=== PATIENT | male | born 1965 | race African-American/Black ===

== ENCOUNTER 2016-08-29 09:04 | Inpatient (IN) | payer MEDICAID ==
[~2016-08-29] VITALS: Ht 182.9 cm; Wt 72.6 kg
[2016-08-29] VITALS (7 sets, daily range): BP systolic 113–148; BP diastolic 70–91
[~2016-08-29 09:04] MED LIST: NKM
[2016-08-29 09:56] LABS: MEAN CORPUSCULAR HEMOGLOBIN 19.8 PG (27.0-31.0); MEAN CORPUSCULAR HGB CONC 26.3 G/DL (32.0-36.0); MEAN CORPUSCULAR VOLUME 75 FL (80-99); MEAN PLATELET VOLUME 5.2 FL (6.5-10.1); PLATELET COUNT 82 K/UL (150-450); RED BLOOD COUNT 2.39 M/UL (4.70-6.10); RED CELL DISTRIBUTION WIDTH 23.3 % (11.6-14.8); WHITE BLOOD COUNT 8.5 K/UL (4.8-10.8)
[2016-08-29 10:05] LABS: ACETAMINOPHEN < 10 ug/mL (10-30); ALANINE AMINOTRANSFERASE 22 U/L (3-41); ALBUMIN/GLOBULIN RATIO 0.8 (1.0-2.7); ALCOHOL 24 mg/dL; ANION GAP 20 (5-15); ASPARTATE AMINO TRANSFERASE 86 U/L (5-40); CALCIUM 9.1 mg/dL (8.6-10.2); CARBON DIOXIDE 20 mEQ/L (20-30); CHLORIDE 96 mEQ/L (98-107); CREATININE 0.6 mg/dL (0.7-1.2); GLOMERULAR FILTRATION RATE > 60 mL/min (>60); HEMOLYSIS 0; POTASSIUM 3.6 mEQ/L (3.4-4.9); SODIUM 136 mEQ/L (135-145); TOTAL PROTEIN 7.3 g/dL (6.6-8.7); TROPONIN I < 0.30 ng/mL (<=0.30)
--- NOTE | 2016-08-29 10:08 | Diagnostic Imaging Report ---
Indications: Syncope, vertigo, sluggishness Technique: Continuous helical CT imaging of the brain was performed with automatic exposure control on a Siemens sensation [address] scanner. Axial and coronal images were reconstructed at 5 mm slice thickness and interval. CTDI volume(s): 70 mGy Total DLP: 1488 mGy-cm Findings: Comparison: None. Ventricles, cisterns, sulci are mildly, diffusely prominent. No evidence of mass or hemorrhage, other attenuation abnormality, mass effect, midline shift, hydrocephalus or increased intracranial pressure. Bone window images are unremarkable. Visualized paranasal sinuses and mastoid air cells are clear. IMPRESSION: No evidence of acute intracranial pathology. Mild atrophy, prominent for age. The CT scanner at [facility] is accredited by the [employer] and the scans are performed using protocols designed to limit radiation exposure to as low as reasonably achievable to attain images of sufficient resolution adequate for diagnostic evaluation.
[2016-08-29 10:15] LABS: CKMB 2.4 ng/mL (< 6.7); INR 1.3 (0.9-1.1)
[2016-08-29 10:26] LABS: BILIRUBIN,DIRECT 1.1 mg/dL (0.1-0.3)
[2016-08-29 10:39] LABS: ANISOCYTOSIS 2+; BAND NEUTROPHILS % (MANUAL) 1 % (0-8); BASOPHILS % (MANUAL) 0 % (0-2); EOSINOPHILS % (MANUAL) 1 % (0-3); LYMPHOCYTES % (MANUAL) 14 % (20-45); MICROCYTES 1+; NEUTROPHILS % (MANUAL) 77 % (45-75); PLATELET ESTIMATE DECREASED; PLATELET MORPHOLOGY NORMAL; TOTAL CELLS COUNTED 100
[2016-08-29 10:40] LABS: HYPOCHROMASIA 3+
[2016-08-29] MEDS ORDERED: GABAPENTIN300 MG ORAL (11:48)
[2016-08-29] MEDS ORDERED: NAPROXEN250 M1 PO (11:48)
--- NOTE | 2016-08-29 13:57 | Emergency Room Report ---
History of Present Illness General Chief Complaint: Dizziness Source: Patient Present Illness HPI 50-year-old male presents to ED for evaluation. Patient states he was at a fast food restaurant with his and he started to feel dizzy and weak. 911 was called. Patient states he feels a little better now. Feels very weak. at bedside states that patient didn't fall and hit his head a few days ago. Denies any chest pain shortness of breath. Notes history of alcohol use. States he drinks every day. states that for several months patient had blood in his stool. No other aggravating or relieving factors. Denies any other associated symptoms Allergies: Coded Allergies: No Known Allergies (Unverified , 12/28/15) Patient History Past Medical History: none Past Surgical History: none Pertinent Family History: none Social History: Reports: alcohol use, Denies: drug use, smoking Immunizations: UTD Reviewed Nursing Documentation: PMH: Agreed, PSxH: Agreed Nursing Documentation-PMH Past Medical History: No Stated History Review of Systems All Other Systems: negative except mentioned in HPI Physical Exam Vital Signs Date Time Temp Pulse Resp B/P Pulse Ox O2 Delivery O2 Flow Rate FiO2 08/29/16 08:56 98.1 75 18 115/72 99 Room Air Sp02 EP Interpretation: reviewed, normal General Appearance: no apparent distress, alert, GCS 15, non-toxic Head: normocephalic, atraumatic Eyes: bilateral eye PERRL, bilateral eye normal inspection ENT: hearing grossly normal, normal pharynx, no angioedema, normal voice Neck: full range of motion, supple/symm/no masses Respiratory: chest non-tender, lungs clear, normal breath sounds, speaking full sentences Cardiovascular #1: regular rate, rhythm, no edema Cardiovascular #2: 2+ carotid (R), 2+ carotid (L), 2+ radial (R), 2+ radial (L) , 2+ dorsalis pedis (R), 2+ dorsalis pedis (L) Gastrointestinal: normal bowel sounds, non tender, soft, non-distended, no guarding, no rebound Rectal: heme negative stool Genitourinary: normal inspection, no CVA tenderness Musculoskeletal: back normal, gait/station normal, normal range of motion, non- tender Neurologic: alert, oriented x3, responsive, motor strength/tone normal, sensory intact, speech normal Psychiatric: judgement/insight normal, memory normal, mood/affect normal, no suicidal/homicidal ideation Reflexes: 3+ bicep (R), 3+ bicep (L), 3+ tricep (R), 3+ tricep (L), 3+ knee (R) , 3+ knee (L) Skin: normal color, no rash, warm/dry, well hydrated Lymphatic: no adenopathy Procedures Critical Care Time Critical Care Time i. I feel this is a highly complex case requiring extensive working including EKG/Rhythm strip, Xray/CT/US, Blood/urine lab work, repeat exams while in ED, and administration of strong opiates/narcotics for pain control, admission to hospital or close patient follow up. Total time: 30 min bedside evaluation and treatment excludes procedures (EKG). Reason for critical care: dizziness, severe anemia Possible complications: hypotension, hypertension, OH, shock, arrhythmias, metabolic acidosis, end organ damage, respiratory failure. Interventions: Labs, IV fluids, EKG, chest x-ray, CT head. Blood transfusion Course: Patient brought in for dizziness, headache injury. History of alcohol abuse. CT head negative, EKG unremarkable. Hemoglobin 4.7. LFTs elevated.. Guaiac-negative. Vital stable. PRBCs ordered Consultations: nursing staff, EMS, family Performed by: Dr Law Tolerated well condition = critical j. because of unstable vital signs this patient had a condition that could potentially threaten life or limb. I feel this is a critical patient who required my full attention while patient was considered critical. Total Critical Care Time excluding procedures was greater than 35 minutes Medical Decision Making Diagnostic Impression: Primary Impression: Anemia Qualified Codes: D64.9 - Anemia, unspecified Additional Impressions: Head injury Qualified Codes: S09.90XA - Unspecified injury of head, initial encounter Dizziness Elevated LFTs ER Course Hospital Course 50-year-old m presents ED c/o dizziness and weakness. Status post injury a few days ago. History of alcohol abuse Differential diagnoses include: OH/unstable angina, arrythmia, dehydration, CVA/ TIA, ETOH abuse Clinical course Patient placed on stretcher. on cardiac cath tech. After initial history and physical I ordered labs, EKG, chest x-ray, IVFs, CT Brain labs reviewed- no leukocytosis, hemoglobin 4.7, electrolytes okay, troponins negative, LFTs elevated, ETOH 24 EKG NSR, no acute changes CT brain-unremarkable Guaiac-negative. Prbc's ordered. Vital stable Case discussed with Dr. Rutherford and he agreed to accept the patient to his service for further care and support I. I feel this is a highly complex case requiring extensive working including EKG/Rhythm strip, Xray/CT/US, Blood/urine lab work, repeat exams while in ED, and administration of strong opiates/narcotics for pain control, admission to hospital or close patient follow up. Diagnosis - anemia, head injury, dizziness, elevated lfts admitted to [facility] in critical condition Labs Test 08/29/16 09:40 08/29/16 10:20 White Blood Count 8.5 K/UL (4.8-10.8) Red Blood Count 2.39 M/UL (4.70-6.10) Hemoglobin 4.7 G/DL (14.2-18.0) Hematocrit 18.0 % (42.0-52.0) Mean Corpuscular Volume 75 FL (80-99) Mean Corpuscular Hemoglobin 19.8 PG (27.0-31.0) Mean Corpuscular Hemoglobin Concent 26.3 G/DL (32.0-36.0) Red Cell Distribution Width 23.3 % (11.6-14.8) Platelet Count 82 K/UL (150-450) Mean Platelet Volume 5.2 FL (6.5-10.1) Neutrophils (%) (Auto) % (45.0-75.0) Lymphocytes (%) (Auto) % (20.0-45.0) Monocytes (%) (Auto) % (1.0-10.0) Eosinophils (%) (Auto) % (0.0-3.0) Basophils (%) (Auto) % (0.0-2.0) Differential Total Cells Counted 100 Neutrophils % (Manual) 77 % (45-75) Lymphocytes % (Manual) 14 % (20-45) Monocytes % (Manual) 7 % (1-10) Eosinophils % (Manual) 1 % (0-3) Basophils % (Manual) 0 % (0-2) Band Neutrophils 1 % (0-8) Platelet Estimate Decreased Platelet Morphology Normal Hypochromasia 3+ Anisocytosis 2+ Microcytosis 1+ Prothrombin Time 13.0 SEC (9.30-11.50) Prothromb Time International Ratio 1.3 (0.9-1.1) Activated Partial Thromboplast Time 25 SEC (23-33) Sodium Level 136 mEQ/L (135-145) Potassium Level 3.6 mEQ/L (3.4-4.9) Chloride Level 96 mEQ/L (98-107) Carbon Dioxide Level 20 mEQ/L (20-30) Anion Gap 20 (5-15) Blood Urea Nitrogen 7 mg/dL (7-23) Creatinine 0.6 mg/dL (0.7-1.2) Estimat Glomerular Filtration Rate > 60 mL/min (>60) Glucose Level 89 mg/dL (74-106) Calcium Level 9.1 mg/dL (8.6-10.2) Total Bilirubin 2.4 mg/dL (0.0-1.2) Direct Bilirubin 1.1 mg/dL (0.1-0.3) Aspartate Amino Transf (AST/SGOT) 86 U/L (5-40) Alanine Aminotransferase (ALT/SGPT) 22 U/L (3-41) Alkaline Phosphatase 238 U/L (40-129) Total Creatine Kinase 239 U/L (38-174) Creatine Kinase MB 2.4 ng/mL (< 6.7) Creatine Kinase MB Relative Index 1.0 Troponin I < 0.30 ng/mL (<=0.30) Total Protein 7.3 g/dL (6.6-8.7) Albumin 3.4 g/dL (3.5-5.2) Globulin 3.9 g/dL Albumin/Globulin Ratio 0.8 (1.0-2.7) Salicylates Level < 1 mg/dL (10-30) Acetaminophen Level < 10 ug/mL (10-30) Serum Alcohol 24 mg/dL Urine Opiates Screen Negative (NEGATIVE) Urine Barbiturates Screen Negative (NEGATIVE) Phencyclidine (PCP) Screen Negative (NEGATIVE) Urine Amphetamines Screen Negative (NEGATIVE) Urine Benzodiazepines Screen Negative (NEGATIVE) Urine Cocaine Screen Negative (NEGATIVE) Urine Marijuana (THC) Screen Negative (NEGATIVE) EKG Diagnostic Results Rate: normal Rhythm: NSR ST Segments: no acute changes ASA given to the pt in ED: No Rhythm Strip Diag. Results EP Interpretation: yes Rhythm: NSR, no PVC's, no ectopy CT/MRI/US Diagnostic Results CT/MRI/US Diagnostic Results : Imaging Test Ordered: CT head Impression no acute process Last Vital Signs Date Time Temp Pulse Resp B/P Pulse Ox O2 Delivery O2 Flow Rate FiO2 08/29/16 12:22 117 29 122/75 96 Room Air 08/29/16 11:35 98.0 Status: improved Disposition: ADMITTED INPATIENT Condition: Critical Referrals: NOT CHOSEN IPA/,REFERRING (PCP) SAMINA LAW M.D. August 29, 2016 13:57
[2016-08-29] MEDS ORDERED: Zolpidem 5mg tab ORAL PRN ×2 (14:15→14:25)
[2016-08-29] MEDS ORDERED: Tubing Blood Filter IV ONE (18:57)
[2016-08-29] MEDS ORDERED: NS 275ml ONE (18:57)
[2016-08-29] MEDS: Gabapentin 300 MG/6 ML Soln ORAL SCH (19:13)
[2016-08-30 04:00] VITALS: BP 129/84
[2016-08-30 05:37] LABS: MEAN CORPUSCULAR HEMOGLOBIN 23.4 PG (27.0-31.0); MEAN CORPUSCULAR HGB CONC 30.6 G/DL (32.0-36.0); MEAN CORPUSCULAR VOLUME 76 FL (80-99); MEAN PLATELET VOLUME 8.1 FL (6.5-10.1); PLATELET COUNT 90 K/UL (150-450); RED BLOOD COUNT 3.18 M/UL (4.70-6.10); RED CELL DISTRIBUTION WIDTH 20.1 % (11.6-14.8); WHITE BLOOD COUNT 12.1 K/UL (4.8-10.8)
[2016-08-30 06:44] LABS: ALANINE AMINOTRANSFERASE 23 U/L (3-41); ALBUMIN/GLOBULIN RATIO 0.8 (1.0-2.7); ANION GAP 18 (5-15); ASPARTATE AMINO TRANSFERASE 82 U/L (5-40); CALCIUM 8.9 mg/dL (8.6-10.2); CARBON DIOXIDE 22 mEQ/L (20-30); CHLORIDE 97 mEQ/L (98-107); CREATININE 0.5 mg/dL (0.7-1.2); GLOMERULAR FILTRATION RATE > 60 mL/min (>60); HEMOLYSIS 1; POTASSIUM 3.5 mEQ/L (3.4-4.9); SODIUM 137 mEQ/L (135-145); TOTAL PROTEIN 6.9 g/dL (6.6-8.7)
[2016-08-30 07:58] LABS: BILIRUBIN,DIRECT 1.3 mg/dL (0.1-0.3)
[2016-08-30 08:00] VITALS: BP 143/90
[2016-08-30 08:01] LABS: ANISOCYTOSIS 2+; BAND NEUTROPHILS % (MANUAL) 1 % (0-8); BASOPHILS % (MANUAL) 0 % (0-2); EOSINOPHILS % (MANUAL) 0 % (0-3); HYPOCHROMASIA 1+; LYMPHOCYTES % (MANUAL) 15 % (20-45); MICROCYTES 1+; NEUTROPHILS % (MANUAL) 78 % (45-75); NUCLEATED RED BLOOD CELLS 1 /100 WBC; PLATELET ESTIMATE DECREASED; PLATELET MORPHOLOGY NORMAL; TOTAL CELLS COUNTED 100
[2016-08-30 08:02] LABS: POLYCHROMASIA OCCASIONAL
[2016-08-30] MEDS: Gabapentin 300 MG/6 ML Soln ORAL SCH ×3 (10:40→18:28)
[2016-08-30] MEDS: Pantoprazole Inj IVP SCH ×2 (10:41→21:28)
[2016-08-30] MEDS: Octreotide Acetate 500 MCG in Sodium Chloride 499 ML IV SCH ×2 (10:58→20:49)
--- NOTE | 2016-08-30 11:20 | Diagnostic Imaging Report ---
Indications: Abdominal pain Technique: Transabdominal real-time grayscale and duplex Doppler imaging of the upper abdomen and retroperitoneum was performed. Findings: Comparison: None. Liver 18.4 cm. Normal surface contour, parenchymal echogenicity. 3.2 cm circumscribed anechoic focus in right lobe.. Gallbladder not identified. Bile ducts normal caliber. Common bile duct 5 mm. Pancreas poorly demonstrated without obvious abnormality; tail completely obscured. Spleen 12 cm, no focal lesions. Right kidney unremarkable. Left kidney contains 2 cm circumscribed anechoic focus in the interpolar cortex, otherwise unremarkable. Abdominal aorta, intrahepatic portion of inferior vena cava patent, normal caliber. Duplex Doppler imaging demonstrates antegrade flow in splenic, portal, hepatic veins. Minimal ascites. IMPRESSION: Mild hepatomegaly with right lobe cyst Nonvisualization of gallbladder--correlate with surgical history Suboptimal visualization of pancreas Left renal cortical cyst.
[2016-08-30 12:00] VITALS: BP 133/77
[2016-08-30] MEDS ORDERED: Bisacodyl EC 5mg tab ORAL ONE (12:00)
[2016-08-30] MEDS ORDERED: Nulytely 4L ORAL ONE (14:00)
[2016-08-30 16:00] VITALS: BP 122/79
[2016-08-30] MEDS ORDERED: Tubing IV Blood Pump IV ONE (17:28)
[2016-08-30] MEDS ORDERED: NS 275ml ONE (17:28)
--- NOTE | 2016-08-30 17:31 | History and Physical Report ---
DATE OF ADMISSION: 08/29/2016 REASON FOR ADMISSION: Profound anemia. HISTORY OF PRESENT ILLNESS: This is a 50-year-old male with noted melena. The patient apparently had been feeling weak and dizzy. He was brought into the emergency room by 911. The patient notes that he does drink alcohol every day. The patient's apparently has stated that he has had blood in the stool in the past. The patient currently is comfortable. The patient has received three units of packed red blood cells thus far and remains somewhat anemic. PAST MEDICAL HISTORY: As above. MEDICATIONS: Noted. ALLERGIES: Noted. SOCIAL HISTORY: The patient is a heavy drinker. REVIEW OF SYSTEMS: Otherwise negative. PHYSICAL EXAMINATION: GENERAL: A well-developed male, well built. VITAL SIGNS: Stable. Blood pressure 129/80, pulse 41, respiratory rate 16, and saturations 100% HEENT: Negative. NECK: Supple. No adenopathy. LUNGS: Clear and symmetric. CARDIOVASCULAR: S1 and S2. Regular rate and rhythm. ABDOMEN: Soft and nontender. EXTREMITIES: No edema. NEUROLOGICAL: Grossly nonfocal. LABORATORY DATA: All reviewed in detail. The patient's liver enzymes are not elevated. CBC currently improved with hemoglobin of 7.4, previously was 4.7. Coagulation factor is slightly elevated. IMPRESSION: Concern for underlying liver disease and elevated liver enzymes and possible alcoholic hepatitis and anemia with concern for gastrointestinal bleed. RECOMMENDATIONS: Transfusion of additional two units of packed red blood cells to equal five units of blood total. Protonix daily. Clear liquid diet. Hold any nonsteroidals Monitor for alcohol withdrawal. Await GI evaluation and discharge when stable. Wilfrid Rutherford M.D. DR: YESSENIA JOB#: [id number] CC:
[2016-08-30 20:00] VITALS: BP 134/85
--- NOTE | 2016-08-30 20:46 | Consultation ---
DATE OF CONSULTATION: [facility] CHIEF COMPLAINT: Gastrointestinal bleeding. HISTORY OF PRESENT ILLNESS: This is a 50-year-old male, who was in restaurant with his and his kids, started getting dizzy. A 911 was called. The patient was brought to the hospital where he was found to have a hemoglobin of 4. According to the , he uses alcohol on a daily basis. According to the , the patient has some blood in his stool. PAST MEDICAL HISTORY: None. ALLERGIES: No known drug allergies. MEDICATIONS: Please see medication reconciliation list. SOCIAL HISTORY: The patient drinks alcohol on daily basis. Denies IV drug abuse. FAMILY HISTORY: Noncontributory. REVIEW OF SYSTEMS: A 10-point review of system was performed and pertinent positives as dictated in history of present illness. PHYSICAL EXAMINATION: GENERAL: This is a well-developed male, in no acute distress. VITAL SIGNS: Temperature 98.1 degrees, pulse 85, respirations 16, and blood pressure is 129/84. HEENT: Normocephalic. conjunctivae. NECK: Supple. No evidence of lymphadenopathy. CARDIOVASCULAR: Regular rhythm. Plus S1 and S2. LUNGS: Decreased breath sounds bilaterally based on supine examination. ABDOMEN: Soft and nontender. No rebound. No guarding. No peritoneal sign. EXTREMITIES: No cyanosis. No clubbing. No edema. LABORATORY DATA: On admission, white count was 8.5, hemoglobin 4.7, hematocrit 18, MCV of 75, platelet count of 82,000. INR was 1.3. Sodium 137, potassium 3.5, BUN 5, and creatinine 0.5. Bilirubin is 3.8, direct bilirubin is 1.3, and alkaline phosphatase . ASSESSMENT: This is a 50-year-old male with gastrointestinal bleed. The patient most probably has had alcoholic cirrhosis. Given platelet count of 80s, so differential diagnosis would be variceal bleeding, portal hypertensive bleeding, and lower gastrointestinal bleeding, and the patient also has some bright red blood per rectum. PLAN: The patient to be on clear liquid diet for today, prep for colonoscopy and endoscopy tomorrow. NPO after midnight. Start the patient on octreotide drip. Start the patient on Protonix intravenous. Transfuse to keep hemoglobin above 8. Abdominal ultrasound, hepatitis panel, ammonia level, and esophagogastroduodenoscopy and colonoscopy tomorrow. I want to thank Dr. Rutherford for this kind referral. Ignacio Diaz M.D. DR: FRANCHESCA JOB#: [id number] CC: Wilfrid Rutherford M.D.; Fax#: [phone]
--- NOTE | 2016-08-30 21:15 | Consultation ---
DATE OF CONSULTATION: 08/30/2016 GASTROENTEROLOGY CONSULTATION CHIEF COMPLAINT: Gastrointestinal bleeding. HISTORY OF PRESENT ILLNESS: This is a 50-year-old male, who was in restaurant with his and his kids, started getting dizzy. A 911 was called. The patient was brought to the hospital where he was found to have a hemoglobin of 4. According to the , he uses alcohol on a daily basis. According to the , the patient has some blood in his stool. PAST MEDICAL HISTORY: None. ALLERGIES: No known drug allergies. MEDICATIONS: Please see medication reconciliation list. SOCIAL HISTORY: The patient drinks alcohol on daily basis. Denies IV drug abuse. FAMILY HISTORY: Noncontributory. REVIEW OF SYSTEMS: A 10-point review of system was performed and pertinent positives as dictated in history of present illness. PHYSICAL EXAMINATION: GENERAL: This is a well-developed male, in no acute distress. VITAL SIGNS: Temperature 98.1 degrees, pulse 85, respirations 16, and blood pressure is 129/84. HEENT: Normocephalic. conjunctivae. NECK: Supple. No evidence of lymphadenopathy. CARDIOVASCULAR: Regular rhythm. Plus S1 and S2. LUNGS: Decreased breath sounds bilaterally based on supine examination. ABDOMEN: Soft and nontender. No rebound. No guarding. No peritoneal sign. EXTREMITIES: No cyanosis. No clubbing. No edema. LABORATORY DATA: On admission, white count was 8.5, hemoglobin 4.7, hematocrit 18, MCV of 75, platelet count of 82,000. INR was 1.3. Sodium 137, potassium 3.5, BUN 5, and creatinine 0.5. Bilirubin is 3.8, direct bilirubin is 1.3, and alkaline phosphatase . ASSESSMENT: This is a 50-year-old male with gastrointestinal bleed. The patient most probably has had alcoholic cirrhosis. Given platelet count of 80s, so differential diagnosis would be variceal bleeding, portal hypertensive bleeding, and lower gastrointestinal bleeding, and the patient also has some bright red blood per rectum. PLAN: The patient to be on clear liquid diet for today, prep for colonoscopy and endoscopy tomorrow. NPO after midnight. Start the patient on octreotide drip. Start the patient on Protonix intravenous. Transfuse to keep hemoglobin above 8. Abdominal ultrasound, hepatitis panel, ammonia level, and esophagogastroduodenoscopy and colonoscopy tomorrow. I want to thank Dr. Rutherford for this kind referral. Ignacio Diaz M.D. DR: Naman JOB#: [id number] CC:
[2016-08-31] VITALS (9 sets, daily range): BP systolic 92–150; BP diastolic 62–94
[2016-08-31] MEDS: Octreotide Acetate 500 MCG in Sodium Chloride 499 ML IV SCH ×2 (05:26→18:27)
[2016-08-31 05:43] LABS: MEAN CORPUSCULAR HEMOGLOBIN 24.5 PG (27.0-31.0); MEAN CORPUSCULAR HGB CONC 31.9 G/DL (32.0-36.0); MEAN CORPUSCULAR VOLUME 77 FL (80-99); MEAN PLATELET VOLUME 8.1 FL (6.5-10.1); PLATELET COUNT 99 K/UL (150-450); RED BLOOD COUNT 3.65 M/UL (4.70-6.10); RED CELL DISTRIBUTION WIDTH 19.8 % (11.6-14.8); WHITE BLOOD COUNT 11.4 K/UL (4.8-10.8)
[2016-08-31 05:47] LABS: INR 1.5 (0.9-1.1)
[2016-08-31 06:09] LABS: ALANINE AMINOTRANSFERASE 20 U/L (3-41); ALBUMIN/GLOBULIN RATIO 0.8 (1.0-2.7); ANION GAP 16 (5-15); ASPARTATE AMINO TRANSFERASE 60 U/L (5-40); CALCIUM 8.5 mg/dL (8.6-10.2); CARBON DIOXIDE 22 mEQ/L (20-30); CHLORIDE 95 mEQ/L (98-107); CREATININE 0.5 mg/dL (0.7-1.2); GLOMERULAR FILTRATION RATE > 60 mL/min (>60); HEMOLYSIS 1; POTASSIUM 3.4 mEQ/L (3.4-4.9); SODIUM 133 mEQ/L (135-145); TOTAL PROTEIN 6.9 g/dL (6.6-8.7)
--- NOTE | 2016-08-31 08:04 | Pre-Procedure Note/Attestation ---
Pre-Procedure Note/Attestation Complete Prior to Procedure Planned Procedure: not applicable Procedure Narrative: egd/colonoscopy Indications for Procedure Pre-Operative Diagnosis: gib Attestation I attest that I discussed the nature of the procedure; its benefits; risks and complications; and alternatives (and the risks and benefits of such alternatives ), prior to the procedure, with the patient (or the patient's legal employee's representative). I attest that, if there was a reasonable possibility of needing a blood transfusion, the patient (or the patient's legal employee's representative) was given the [facility] standardized written summary, pursuant to the [place] Blood Safety Act ([place] Health and Safety Code # 1645, as amended). I attest that I re-evaluated the patient just prior to the surgery and that there has been no change in the patient's H&P, except as documented below: BASILIA BOWLING August 31, 2016 08:04
[2016-08-31 08:15] LABS: BILIRUBIN,DIRECT 1.5 mg/dL (0.1-0.3)
[2016-08-31 08:24] LABS: ANISOCYTOSIS 1+; BAND NEUTROPHILS % (MANUAL) 0 % (0-8); BASOPHILS % (MANUAL) 0 % (0-2); EOSINOPHILS % (MANUAL) 1 % (0-3); HYPOCHROMASIA 1+; LYMPHOCYTES % (MANUAL) 14 % (20-45); MICROCYTES 1+; NEUTROPHILS % (MANUAL) 79 % (45-75); NUCLEATED RED BLOOD CELLS 1 /100 WBC; PLATELET ESTIMATE DECREASED; PLATELET MORPHOLOGY NORMAL; POLYCHROMASIA OCCASIONAL; TOTAL CELLS COUNTED 100
[2016-08-31] MEDS ORDERED: NS 550ML IV ONE ×2 (08:26→08:30)
[2016-08-31] MEDS ORDERED: Propofol 10mg/ml 20ml IV ONE (08:30)
[2016-08-31] MEDS ORDERED: fentaNYL 100 mcg/2 mL IV PRN (08:30)
--- NOTE | 2016-08-31 08:35 | General Progress Note ---
Assessment/Plan Assessment/Plan IMPRESSION: Concern for underlying liver disease and elevated liver enzymes and possible alcoholic hepatitis and anemia with concern for gastrointestinal bleed. prior gabriele PLAN colonscopy and endoscopy today HH improved dc planning pending GI clearance Subjective Allergies: Coded Allergies: No Known Allergies (Unverified , 12/28/15) Subjective stable for colonscopy today Objective Last 24 Hour Vital Signs Date Time Temp Pulse Resp B/P Pulse Ox O2 Delivery O2 Flow Rate FiO2 08/31/16 04:00 65 08/31/16 04:00 98.1 66 20 137/69 99 Room Air 08/31/16 00:00 62 08/31/16 00:00 98.6 72 20 127/72 98 Room Air 08/30/16 20:00 96.5 65 18 134/85 100 Room Air 08/30/16 20:00 91 08/30/16 16:00 96.3 79 20 122/79 100 Room Air 08/30/16 16:00 81 08/30/16 12:00 97.5 87 20 133/77 100 Room Air 08/30/16 12:00 67 08/30/16 08:57 81 Intake and Output 08/30/16 08/31/16 19:00 07:00 Intake Total 3860 ml 1940 ml Output Total 4 ml 200 ml Balance 3856 ml 1740 ml Intake Oral 2960 ml 1440 ml IV Total 400 ml 500 ml Blood Product 500 ml Output Urine Total 200 ml Stool Total 4 ml # Voids 1 # Bowel Movements 1 7 Laboratory Tests 08/30/16 16:20: Stool Occult Blood Positive, Urine Opiates Screen Negative, Urine Barbiturates Screen Negative, Phencyclidine (PCP) Screen Negative, Urine Amphetamines Screen Negative, Urine Benzodiazepines Screen Negative, Urine Cocaine Screen Negative, Urine Marijuana (THC) Screen Negative 08/31/16 04:35: White Blood Count 11.4H, Red Blood Count 3.65L, Hemoglobin 8.9L, Hematocrit 28.0L, Mean Corpuscular Volume 77L, Mean Corpuscular Hemoglobin 24.5L, Mean Corpuscular Hemoglobin Concent 31.9L, Red Cell Distribution Width 19.8H, Platelet Count 99L, Mean Platelet Volume 8.1, Neutrophils (%) (Auto) , Lymphocytes (%) (Auto) , Monocytes (%) (Auto) , Eosinophils (%) (Auto) , Basophils (%) (Auto) , Differential Total Cells Counted 100, Neutrophils % ( Manual) 79H, Lymphocytes % (Manual) 14L, Monocytes % (Manual) 6, Eosinophils % ( Manual) 1, Basophils % (Manual) 0, Band Neutrophils 0, Nucleated Red Blood Cells 1, Platelet Estimate DecreasedL, Platelet Morphology Normal, Polychromasia Occasional, Hypochromasia 1+, Anisocytosis 1+, Microcytosis 1+, Prothrombin Time 15.0H, Prothromb Time International Ratio 1.5H, Sodium Level 133L, Potassium Level 3.4, Chloride Level 95L, Carbon Dioxide Level 22, Anion Gap 16H, Blood Urea Nitrogen 5L, Creatinine 0.5L, Estimat Glomerular Filtration Rate > 60, Glucose Level 113H, Calcium Level 8.5L, Total Bilirubin 4.4H, Direct Bilirubin 1.5H, Aspartate Amino Transf (AST/SGOT) 60H, Alanine Aminotransferase (ALT/SGPT) 20, Alkaline Phosphatase 242H, Ammonia 77H, Total Protein 6.9, Albumin 3.1L, Globulin 3.8, Albumin/Globulin Ratio 0.8L, Hepatitis A IgM Antibody [Pending], Hepatitis B Surface Antigen [Pending], Hepatitis B Core IgM Antibody [Pending], Hepatitis C Antibody [Pending] Height (Feet): 6 Height (Inches): 1.00 Weight (Pounds): 160 Objective GENERAL: A well-developed male, well built. HEENT: Negative. NECK: Supple. No adenopathy. LUNGS: Clear and symmetric. CARDIOVASCULAR: S1 and S2. Regular rate and rhythm. ABDOMEN: Soft and nontender. EXTREMITIES: No edema. NEUROLOGICAL: Grossly nonfocal. JASMEET ALBRECHT August 31, 2016 08:35
--- NOTE | 2016-08-31 08:42 | Anethesia Preoperative Eval ---
Anesthesia Pre-op PMH/ROS General Date of Evaluation: August 31, 2016 Time of Evaluation: 08:20 Anesthesiologist: Katelynn ASA Score: ASA 3 Mallampati Score Class I : Soft palate, uvula, fauces, pillars visible Class II: Soft palate, uvula, fauces visible Class III: Soft palate, base of uvula visible Class IV: Only hard plate visible Mallampati Classification: Class II Surgeon: Joe Diagnosis: Anemia, GI bleed Surgical Procedure: GD, Colonoscopy Social History: alcohol use Family History: no anesthesia problems Allergies: Coded Allergies: No Known Allergies (Unverified , 12/28/15) Medications: see eMAR Past Medical History Cardiovascular: Denies: CAD, HTN, ME, arrhythmia, other, valve dz Pulmonary: Denies: COPD, ERJI, asthma, other Gastrointestinal/Genitourinary: Denies: CRI, ESRD, GERD, other Neurologic/Psychiatric: Denies: CVA, TIA, dementia, depression/anxiety, other Endocrine: Denies: DM, hypothyroidism, other, steroids HEENT: Denies: [place] (L), [place] (R), cataract (L), cataract (R), glaucoma, other Hematology/Immune: Reports: anemia Musculoskeletal/Integumentary: Denies: DDD, DJD, OA, RA, edema, other PMH Narrative: GI bleed, anemia, neuropathy, perforated ulcer PSxH Narrative: Stomach, cholecystectomy Anesthesia Pre-op Phys. Exam Physician Exam Last Vital Signs Date Time Temp Pulse Resp B/P Pulse Ox O2 Delivery O2 Flow Rate FiO2 08/31/16 04:00 65 08/31/16 04:00 98.1 20 137/69 99 Room Air Constitutional: NAD Neurologic: CN 2-12 intact Cardiovascular: RRR, no M/R/G Respiratory: CTA Gastrointestinal: S/NT/ND Airway Exam Mallampati Score: Class II MO: full ROM: full Teeth: missing Anesthesia Pre-op A/P Labs Hematology Test 08/31/16 04:35 White Blood Count 11.4 K/UL (4.8-10.8) H Red Blood Count 3.65 M/UL (4.70-6.10) L Hemoglobin 8.9 G/DL (14.2-18.0) L Hematocrit 28.0 % (42.0-52.0) L Mean Corpuscular Volume 77 FL (80-99) L Mean Corpuscular Hemoglobin 24.5 PG (27.0-31.0) L Mean Corpuscular Hemoglobin Concent 31.9 G/DL (32.0-36.0) L Red Cell Distribution Width 19.8 % (11.6-14.8) H Platelet Count 99 K/UL (150-450) L Mean Platelet Volume 8.1 FL (6.5-10.1) Neutrophils (%) (Auto) % (45.0-75.0) Lymphocytes (%) (Auto) % (20.0-45.0) Monocytes (%) (Auto) % (1.0-10.0) Eosinophils (%) (Auto) % (0.0-3.0) Basophils (%) (Auto) % (0.0-2.0) Differential Total Cells Counted 100 Neutrophils % (Manual) 79 % (45-75) H Lymphocytes % (Manual) 14 % (20-45) L Monocytes % (Manual) 6 % (1-10) Eosinophils % (Manual) 1 % (0-3) Basophils % (Manual) 0 % (0-2) Band Neutrophils 0 % (0-8) Nucleated Red Blood Cells 1 /100 WBC Platelet Estimate Decreased L Platelet Morphology Normal Polychromasia Occasional Hypochromasia 1+ Anisocytosis 1+ Microcytosis 1+ Coagulation Test 08/31/16 04:35 Prothrombin Time 15.0 SEC (9.30-11.50) H Prothromb Time International Ratio 1.5 (0.9-1.1) H Chemistry Test 08/31/16 04:35 Sodium Level 133 mEQ/L (135-145) L Potassium Level 3.4 mEQ/L (3.4-4.9) Chloride Level 95 mEQ/L (98-107) L Carbon Dioxide Level 22 mEQ/L (20-30) Anion Gap 16 (5-15) H Blood Urea Nitrogen 5 mg/dL (7-23) L Creatinine 0.5 mg/dL (0.7-1.2) L Estimat Glomerular Filtration Rate > 60 mL/min (>60) Glucose Level 113 mg/dL (74-106) H Calcium Level 8.5 mg/dL (8.6-10.2) L Total Bilirubin 4.4 mg/dL (0.0-1.2) H Direct Bilirubin 1.5 mg/dL (0.1-0.3) H Aspartate Amino Transf (AST/SGOT) 60 U/L (5-40) H Alanine Aminotransferase (ALT/SGPT) 20 U/L (3-41) Alkaline Phosphatase 242 U/L (40-129) H Ammonia 77 umol/L (16-60) H Total Protein 6.9 g/dL (6.6-8.7) Albumin 3.1 g/dL (3.5-5.2) L Globulin 3.8 g/dL Albumin/Globulin Ratio 0.8 (1.0-2.7) L Risk Assessment & Plan Assessment: GI bleed Plan: GA, TIVA Status Change Before Surgery: No Pre-Antibiotics Drug: None BARRETT MAY M.D. August 31, 2016 08:42
--- NOTE | 2016-08-31 08:43 | Immediate Post-Op Evaluation ---
Immediate Post-Op Evalulation Immediate Post-Op Evalulation Procedure: EGD, Colonoscopy Date of Evaluation: August 31, 2016 Time of Evaluation: 09:10 IV Fluids: 225 Blood Pressure Systolic: 92 Blood Pressure Diastolic: 67 Pulse Rate: 80 Respiratory Rate: 20 O2 Sat by Pulse Oximetry: 99 Temperature (Fahrenheit): 97.4 Pain Score (1-10): 0 Nausea: No Vomiting: No Complications No complication Patient Status: awake, patent, none Hydration Status: adequate Drug: None BARRETT MAY M.D. August 31, 2016 08:43
--- NOTE | 2016-08-31 09:01 | Endoscopy Procedure Note ---
Endoscopy Procedure Note Indication for Procedure: gib Procedures Performed: EGD, colonoscopy Operative Findings/Diagnosis: gastritis, duodenitis, hemorrhoids Specimen: yes Pt Tolerated Procedure Well: Yes Estimated Blood Loss: none Anesthesiologist: john Anesthesia: MAC Implant(s) used?: No 50 yrs or older w/o bx or poly: Not Applicable 10yrs. F/U not recommended: Not Applicable BASILIA BOWLING August 31, 2016 09:01
[2016-08-31] MEDS: Pantoprazole Inj IVP SCH ×2 (10:26→20:30)
[2016-08-31] MEDS: Gabapentin 300 MG/6 ML Soln ORAL SCH ×3 (10:45→18:26)
--- NOTE | 2016-08-31 18:00 | Procedure Note ---
DATE OF PROCEDURE: 08/31/2016 SURGEON: Ignacio Diaz M.D. PROCEDURE: Upper endoscope with biopsy and colonoscopy. ANESTHESIOLOGIST: Ben Pace M.D. INSTRUMENT: Olympus adult flexible upper endoscope and colonoscope. INDICATION: Gastrointestinal bleeding. REASON FOR PROCEDURE: The procedure, risks, benefits, and possible consequences, including hemorrhage, aspiration, perforation and infection, and alternative treatments, were explained to the patient/legal guardian by Dr. Ignacio Diaz and the patient/legal guardian understood and accepted these risks. DESCRIPTION OF PROCEDURE: After informed consent was obtained and the patient was adequately sedated, the Olympus upper endoscope was advanced from mouth into the second portion of duodenum and retroflexion was performed in the stomach. The patient had no evidence of any obvious large esophageal nor gastric varices. In the stomach, there were slight mucosal changes especially portal hypertensive gastropathy. Biopsy from the body of the stomach was obtained. There was also evidence of gastritis in the antrum, without any obvious ulcerations. Random biopsy from antrum also was obtained to rule out H. pylori infection. The patient had abnormal looking duodenal mucosa with inflammation and swelling and some mucosal changes of unknown etiology. Biopsy from duodenum was also obtained. At this time, the upper endoscope was retrieved and the patient was turned over for colonoscopy. First, a rectal exam was performed, which was normal. Then, the scope was advanced from the rectum into the cecum, documented by appendiceal orifice, ileocecal valve, and right upper quadrant palpation. Quality of prep was good. The patient had no obvious finding in the colon. No mass, no polyp, and no diverticulosis. In the rectum, there was evidence of some rectal varices. Also, the patient had evidence of rectal prolapse. SUMMARY OF FINDINGS: 1. Questionable portal hypertensive gastropathy. 2. Gastritis. 3. Duodenitis. 4. Rectal prolapse. 5. Rectal varices. RECOMMENDATIONS: Follow up biopsies and treat accordingly. Ignacio Diaz M.D. DR: CHACHO JOB#: [id number] CC:
--- NOTE | 2016-08-31 21:54 | General Progress Note ---
Assessment/Plan Assessment/Plan Assessment - GIB - Anemia - Gastritis - Duodenitis - Hemorrhoids Recommendations - po diet - follow labs Subjective Allergies: Coded Allergies: No Known Allergies (Unverified , 12/28/15) Subjective just back from GI labs feels OK Objective Last 24 Hour Vital Signs Date Time Temp Pulse Resp B/P Pulse Ox O2 Delivery O2 Flow Rate FiO2 08/31/16 18:35 49 08/31/16 16:00 99.4 91 20 141/82 97 Room Air 88 08/31/16 14:00 70 08/31/16 12:00 98.2 76 20 139/86 97 Room Air 88 08/31/16 09:25 98.0 78 20 150/94 98 Room Air 88 08/31/16 09:10 76 20 110/65 98 Room Air 88 08/31/16 09:07 80 20 99 08/31/16 09:05 80 20 99/62 98 Room Air 88 08/31/16 09:00 97.4 88 20 92/67 98 Simple Mask 8.0 88 08/31/16 08:00 62 08/31/16 04:00 65 08/31/16 04:00 98.1 66 20 137/69 99 Room Air 08/31/16 00:00 62 08/31/16 00:00 98.6 72 20 127/72 98 Room Air Intake and Output 08/30/16 08/31/16 19:00 07:00 Intake Total 3860 ml 1940 ml Output Total 4 ml 200 ml Balance 3856 ml 1740 ml Intake Oral 2960 ml 1440 ml IV Total 400 ml 500 ml Blood Product 500 ml Output Urine Total 200 ml Stool Total 4 ml # Voids 1 # Bowel Movements 1 7 Laboratory Tests 08/31/16 04:35: White Blood Count 11.4H, Red Blood Count 3.65L, Hemoglobin 8.9L, Hematocrit 28.0L, Mean Corpuscular Volume 77L, Mean Corpuscular Hemoglobin 24.5L, Mean Corpuscular Hemoglobin Concent 31.9L, Red Cell Distribution Width 19.8H, Platelet Count 99L, Mean Platelet Volume 8.1, Neutrophils (%) (Auto) , Lymphocytes (%) (Auto) , Monocytes (%) (Auto) , Eosinophils (%) (Auto) , Basophils (%) (Auto) , Differential Total Cells Counted 100, Neutrophils % ( Manual) 79H, Lymphocytes % (Manual) 14L, Monocytes % (Manual) 6, Eosinophils % ( Manual) 1, Basophils % (Manual) 0, Band Neutrophils 0, Nucleated Red Blood Cells 1, Platelet Estimate DecreasedL, Platelet Morphology Normal, Polychromasia Occasional, Hypochromasia 1+, Anisocytosis 1+, Microcytosis 1+, Prothrombin Time 15.0H, Prothromb Time International Ratio 1.5H, Sodium Level 133L, Potassium Level 3.4, Chloride Level 95L, Carbon Dioxide Level 22, Anion Gap 16H, Blood Urea Nitrogen 5L, Creatinine 0.5L, Estimat Glomerular Filtration Rate > 60, Glucose Level 113H, Calcium Level 8.5L, Total Bilirubin 4.4H, Direct Bilirubin 1.5H, Aspartate Amino Transf (AST/SGOT) 60H, Alanine Aminotransferase (ALT/SGPT) 20, Alkaline Phosphatase 242H, Ammonia 77H, Total Protein 6.9, Albumin 3.1L, Globulin 3.8, Albumin/Globulin Ratio 0.8L, Hepatitis A IgM Antibody [Pending], Hepatitis B Surface Antigen [Pending], Hepatitis B Core IgM Antibody [Pending], Hepatitis C Antibody [Pending] Height (Feet): 6 Height (Inches): 1.00 Weight (Pounds): 160 Objective WDWN NCAT supple CTA RRR Soft ND NT no edema non focal YESENIA PAK August 31, 2016 21:54
[2016-09-01] MEDS: Octreotide Acetate 500 MCG in Sodium Chloride 499 ML IV SCH (02:02)
[2016-09-01 04:00] VITALS: BP 120/78
[2016-09-01 05:33] LABS: MEAN CORPUSCULAR HEMOGLOBIN 24.4 PG (27.0-31.0); MEAN CORPUSCULAR HGB CONC 31.6 G/DL (32.0-36.0); MEAN CORPUSCULAR VOLUME 77 FL (80-99); MEAN PLATELET VOLUME 7.6 FL (6.5-10.1); PLATELET COUNT 87 K/UL (150-450); RED BLOOD COUNT 3.67 M/UL (4.70-6.10); WHITE BLOOD COUNT 14.3 K/UL (4.8-10.8)
[2016-09-01 08:00] VITALS: BP 112/53
--- NOTE | 2016-09-01 08:20 | General Progress Note ---
Assessment/Plan Assessment/Plan IMPRESSION: Concern for underlying liver disease and elevated liver enzymes and possible alcoholic hepatitis and anemia with concern for gastrointestinal bleed. prior gabriele PLAN dc today protonix daily no ETOH return to er if bleeding recurs will need iron after dc follow up with pmd for cbc Subjective Allergies: Coded Allergies: No Known Allergies (Unverified , 12/28/15) Subjective stable results noted Objective Last 24 Hour Vital Signs Date Time Temp Pulse Resp B/P Pulse Ox O2 Delivery O2 Flow Rate FiO2 09/01/16 04:59 100.1 09/01/16 04:00 101.4 91 20 120/78 99 Room Air 09/01/16 04:00 97 09/01/16 00:00 85 08/31/16 20:00 81 08/31/16 20:00 99.2 81 18 148/84 98 Room Air 08/31/16 18:35 49 08/31/16 16:00 99.4 91 20 141/82 97 Room Air 88 08/31/16 14:00 70 08/31/16 12:00 98.2 76 20 139/86 97 Room Air 88 08/31/16 09:25 98.0 78 20 150/94 98 Room Air 88 08/31/16 09:10 76 20 110/65 98 Room Air 88 08/31/16 09:07 80 20 99 08/31/16 09:05 80 20 99/62 98 Room Air 88 08/31/16 09:00 97.4 88 20 92/67 98 Simple Mask 8.0 88 Intake and Output 08/31/16 09/01/16 19:00 07:00 Intake Total 825 ml 550 ml Output Total 400 ml Balance 825 ml 150 ml IV Total 825 ml 550 ml Output Urine Total 400 ml # Bowel Movements 3 Laboratory Tests 09/01/16 04:00: White Blood Count 14.3H, Red Blood Count 3.67L, Hemoglobin 9.0L, Hematocrit 28.4L, Mean Corpuscular Volume 77L, Mean Corpuscular Hemoglobin 24.4L, Mean Corpuscular Hemoglobin Concent 31.6L, Red Cell Distribution Width 21.0H, Platelet Count 87L, Mean Platelet Volume 7.6, Neutrophils (%) (Auto) , Lymphocytes (%) (Auto) , Monocytes (%) (Auto) , Eosinophils (%) (Auto) , Basophils (%) (Auto) , Neutrophils % (Manual) [Pending], Lymphocytes % (Manual) [Pending], Platelet Estimate [Pending], Platelet Morphology [Pending] Height (Feet): 6 Height (Inches): 1.00 Weight (Pounds): 160 Objective GENERAL: A well-developed male, well built. HEENT: Negative. NECK: Supple. No adenopathy. LUNGS: Clear and symmetric. CARDIOVASCULAR: S1 and S2. Regular rate and rhythm. ABDOMEN: Soft and nontender. EXTREMITIES: No edema. NEUROLOGICAL: Grossly nonfocal. JASMEET ALBRECHT September 01, 2016 08:20
[2016-09-01] MEDS: Gabapentin 300 MG/6 ML Soln ORAL SCH (08:41)
[2016-09-01] MEDS: Pantoprazole Inj IVP SCH (08:42)
[2016-09-01] MEDS ORDERED: PROTONIX40 MG ORAL (10:19)
[2016-09-01 10:26] LABS: BAND NEUTROPHILS % (MANUAL) 2 % (0-8); LYMPHOCYTES % (MANUAL) 6 % (20-45); NEUTROPHILS % (MANUAL) 87 % (45-75); TOTAL CELLS COUNTED 100
[2016-09-01 10:27] LABS: BASOPHILS % (MANUAL) 0 % (0-2); EOSINOPHILS % (MANUAL) 0 % (0-3); HYPOCHROMASIA 2+; PLATELET ESTIMATE DECREASED; PLATELET MORPHOLOGY NORMAL; POLYCHROMASIA 1+
[2016-09-01 10:29] LABS: MICROCYTES 1+
[2016-09-01 10:31] LABS: ANISOCYTOSIS 2+
--- NOTE | 2016-09-01 18:39 | Cardiology Report ---
APPROVED REPORT EKG Measurement Heart [id number] ME [id number] Normal sinus rhythm with sinus arrhythmia Normal ECG
--- NOTE | 2016-09-01 20:59 | General Progress Note ---
Assessment/Plan Assessment/Plan Assessment - GIB - Anemia - Gastritis - Duodenitis - Hemorrhoids Recommendations - po diet - follow labs - d/c planning - advised needs close outpt f/u Subjective Allergies: Coded Allergies: No Known Allergies (Unverified , 12/28/15) Subjective feels well tolerating po d/w PMD re d/c plans Objective Last 24 Hour Vital Signs Date Time Temp Pulse Resp B/P Pulse Ox O2 Delivery O2 Flow Rate FiO2 09/01/16 08:00 100.9 88 22 112/53 98 Room Air 09/01/16 07:56 77 09/01/16 04:59 100.1 09/01/16 04:00 101.4 91 20 120/78 99 Room Air 09/01/16 04:00 97 09/01/16 00:00 85 Intake and Output 08/31/16 09/01/16 19:00 07:00 Intake Total 825 ml 550 ml Output Total 400 ml Balance 825 ml 150 ml IV Total 825 ml 550 ml Output Urine Total 400 ml # Bowel Movements 3 Laboratory Tests 09/01/16 04:00: White Blood Count 14.3H, Red Blood Count 3.67L, Hemoglobin 9.0L, Hematocrit 28.4L, Mean Corpuscular Volume 77L, Mean Corpuscular Hemoglobin 24.4L, Mean Corpuscular Hemoglobin Concent 31.6L, Red Cell Distribution Width 21.0H, Platelet Count 87L, Mean Platelet Volume 7.6, Neutrophils (%) (Auto) , Lymphocytes (%) (Auto) , Monocytes (%) (Auto) , Eosinophils (%) (Auto) , Basophils (%) (Auto) , Differential Total Cells Counted 100, Neutrophils % ( Manual) 87H, Lymphocytes % (Manual) 6L, Monocytes % (Manual) 5, Eosinophils % ( Manual) 0, Basophils % (Manual) 0, Band Neutrophils 2, Platelet Estimate DecreasedL, Platelet Morphology Normal, Polychromasia 1+, Hypochromasia 2+, Anisocytosis 2+, Microcytosis 1+, Macrocytosis Height (Feet): 6 Height (Inches): 1.00 Weight (Pounds): 160 Objective WDWN NCAT supple CTA RRR Soft ND NT no edema non focal YESENIA PAK September 01, 2016 20:59
--- NOTE | 2016-09-03 12:29 | Discharge Summary ---
Discharge Summary Hospital Course Date of Admission August 29, 2016 at 11:48 Date of Discharge September 01, 2016 at 12:15 Admitting Diagnosis Anemia, Dizziness HPI Solitario Castillo is a 50 year old male who was admitted on August 29, 2016 at 11:48 for Anemia,Dizziness Hospital Course [id number] Discharge Discharge Disposition Patient was discharged to Home (01) Discharge Diagnoses: Zoe Shaver NP September 03, 2016 12:29
--- NOTE | 2016-09-03 22:33 | Discharge Summary 2 SIG ---
DATE OF ADMISSION: 08/29/2016 DATE OF DISCHARGE: 09/01/2016 CONSULTANTS: Eduar Stubbs M.D. BRIEF HOSPITAL COURSE: The patient is a 50-year-old male with complaints of melena. Apparently, he had been feeling weak and was dizzy. He was brought to emergency room via 911. The patient admits to drinking alcohol everyday and apparently stated that he had blood in the stool in the past. On evaluation at ED, laboratories showed anemia. Hemoglobin level was down to 4.7, hematocrit was 18, and platelets was 82,000. Serum alcohol level was 24 and urine toxicology was positive. The patient was ordered blood transfusion and was admitted to [facility] in critical condition. Head CT showed no acute process. EKG showed normal sinus rhythm. GI was consulted. The patient was placed given clear liquids and was placed on NPO for colonoscopy and endoscopy. He was started on octreotide drip and was given Protonix intravenous. On 09/01/2016, the patient underwent upper and lower endoscopy with findings of questionable portal hypertensive gastropathy, gastritis, duodenitis, rectal prolapse, and rectal varices. Procedure was performed by Dr. Diaz. Abdominal ultrasound showed mild hepatomegaly with right lobe cyst and nonvisualization of the gallbladder. Octreotide drip was discontinued. Diet was advanced. Advised alcohol cessation and advised to return to the ER if bleeding recurs. The patient will need iron after discharge. He was advised to follow up with PMD and advised alcohol cessation. FINAL DIAGNOSES: 1. Acute gastrointestinal bleed. 2. Acute anemia requiring blood transfusion. 3. Gastritis. 4. Duodenitis. 5. Rectal varices. 6. Ethyl alcohol abuse. Wilfrid Rutherford M.D. I have been assigned to dictate discharge summary on this account and I was not involved in the patient's management. Zoe Shaver N.P. DR: SEJAL JOB#: [id number] CC:
== END 2016-09-01 12:15 | disposition home or self-care (01) | DRG 253 ==
LOC: EDBD 09:04 → EMR 09:15 → EDBEDREQSVC 11:41 → EDBEDREQ 11:41 → 2W 11:48
PROC: 30233N1 Transfusion of Nonautologous Red Blood Cells into Peripheral Vein, Percutaneous Approach (ICD-10-PCS; principal; 2016-08-29)
PROC: 0DB98ZX Excision of Duodenum, Via Natural or Artificial Opening Endoscopic, Diagnostic (ICD-10-PCS; 2016-08-31)
PROC: 0DJD8ZZ Inspection of Lower Intestinal Tract, Via Natural or Artificial Opening Endoscopic (ICD-10-PCS; 2016-08-31)
PROC: 0DB68ZX Excision of Stomach, Via Natural or Artificial Opening Endoscopic, Diagnostic (ICD-10-PCS; 2016-08-31 08:33)
DX: K92.2 Gastrointestinal hemorrhage, unspecified (principal); K76.6 Portal hypertension; K70.30 Alcoholic cirrhosis of liver without ascites; K29.70 Gastritis, unspecified, without bleeding; K29.80 Duodenitis without bleeding; K62.3 Rectal prolapse; I86.8 Varicose veins of other specified sites; K31.89 Other diseases of stomach and duodenum; K64.9 Unspecified hemorrhoids; D50.0 Iron deficiency anemia secondary to blood loss (chronic)
CPT/HCPCS: 36415; 70450; 76700; 80053; 80300; 80329; 82140; 82248; 82270; 82550; 82553; 84484; 85007; 85025; 85610; 85730; 86705; 86709; 86803; 86850; 86900; 86901; 86920; 87081; 87340; 93005; 94003; 94150

== ENCOUNTER 2017-02-17 16:30 | Inpatient (IN) | payer MEDICAID ==
[~2017-02-17] VITALS: Ht 182.9 cm; Wt 65.8 kg
[~2017-02-17 16:30] MED LIST changes: +GABAPENTIN300 MG ORAL; +NAPROXEN250 M1 PO; +PROTONIX40 MG ORAL
[2017-02-17 17:00] VITALS: BP 129/88
--- NOTE | 2017-02-17 17:05 | Emergency Room Report ---
History of Present Illness General Chief Complaint: Sore Throat Source: Patient, EMS Present Illness HPI 51-year-old male presents to the emergency department complaining of sore throat that he rates as 10 out of 10 in severity and described a burning sensation x2 days. Patient also reports that he is spitting up bright red blood times one day. Patient reports daily drinking 3 beers. Patient also reports black stool 3 days ago and has not had a bowel movement since. Patient does state that he is taking iron has recently had eye surgery approximately one month ago. Denies CP, Palpitations, LOC, AMS, dizziness, Changes in Vision, Sensation, paresthesias, or a sudden severe headache. Allergies: Coded Allergies: No Known Allergies (Unverified , 12/28/15) Patient History Past Medical History: see triage record Past Surgical History: none Pertinent Family History: none Social History: Reports: alcohol use Reviewed Nursing Documentation: PMH: Agreed, PSxH: Agreed Nursing Documentation-PMH Hx Cardiac Problems: No Hx Cancer: No Hx Gastrointestinal Problems: Yes - ulcers Hx Neurological Problems: Yes - "numbness to feet" Review of Systems All Other Systems: negative except mentioned in HPI Physical Exam Vital Signs Date Time Temp Pulse Resp B/P (MAP) Pulse Ox O2 Delivery O2 Flow Rate FiO2 02/17/17 16:26 98.6 80 16 112/68 100 Room Air Sp02 EP Interpretation: reviewed, normal General Appearance: alert, GCS 15, non-toxic, mild distress Head: normocephalic, atraumatic Eyes: bilateral eye normal inspection, bilateral eye PERRL ENT: hearing grossly normal, normal pharynx, no angioedema, normal voice, uvula midline, moist mucus membranes, other - no evidence of blood in the throat , or epistaxis Neck: full range of motion, supple/symm/no masses Respiratory: chest non-tender, lungs clear, normal breath sounds, no respiratory distress, no wheezing, speaking full sentences Cardiovascular #1: regular rate, rhythm, normal capillary refill Cardiovascular #2: 2+ radial (R), 2+ radial (L) Gastrointestinal: normal bowel sounds, soft, no guarding, no rebound, tenderness - mild epigastric abdominal ttp, no distention, other - no abdominal distention Rectal: deferred - Pt. denies BRBPR, and reports taking Iron Musculoskeletal: back normal, gait/station normal, normal range of motion, non- tender Neurologic: alert, oriented x3, responsive, motor strength/tone normal, sensory intact, normal gait, speech normal Skin: normal color, no rash, warm/dry, well hydrated, other - no bruises, no jaundice, no capus medusae Medical Decision Making PA Attestation Dr. Pickens is my supervising Physician whom patient management has been discussed with. Diagnostic Impression: Primary Impression: GI bleed Qualified Codes: K92.2 - Gastrointestinal hemorrhage, unspecified Additional Impression: Anemia Qualified Codes: D64.9 - Anemia, unspecified ER Course 51-year-old male presents to the emergency department complaining of sore throat that he rates as 10 out of 10 in severity and described a burning sensation x2 days. Patient also reports that he is spitting up bright red blood times one day. Patient reports daily drinking 3 beers. Patient also reports black stool 3 days ago and has not had a bowel movement since. Patient does state that he is taking iron has recently had eye surgery approximately one month ago. Denies CP, Palpitations, LOC, AMS, dizziness, Changes in Vision, Sensation, paresthesias, or a sudden severe headache. Ddx considered but are not limited to Upper GI Bleed, TB, posterior epistaxis, esophageal varices, bronchitis, just to name a few. Vital signs: are WNL, pt. is afebrile H&PE are most consistent with upper GI bleed , pt. had 150cc of BRB/mucus in emesis bag. ORDERS: -CBC: Anemia: HB 8.0, and HCT 14, -CMP: awaiting Laboratory to run and give results..... -EK NSR. - Type and Screen: O Positive -Coags: elevated 13.4 and 1.3 INR ED INTERVENTIONS: -IV access - Protonix IV -1 Liter NS Bolus -Octreotide IV DISPOSITION: at this time pt. will be admitted to Dr. Bar for Upper GI Bleed and Anemia. Dr. Bar agreed to admit the pt. and to continue pt. care management. Labs Test 02/19/17 05:00 02/20/17 03:55 02/21/17 07:10 White Blood Count 7.9 K/UL (4.8-10.8) 8.0 K/UL (4.8-10.8) 10.0 K/UL (4.8-10.8) Red Blood Count 3.54 M/UL (4.70-6.10) 3.67 M/UL (4.70-6.10) 3.80 M/UL (4.70-6.10) Hemoglobin 8.1 G/DL (14.2-18.0) 8.9 G/DL (14.2-18.0) 8.9 G/DL (14.2-18.0) Hematocrit 29.7 % (42.0-52.0) 28.7 % (42.0-52.0) 30.7 % (42.0-52.0) Mean Corpuscular Volume 84 FL (80-99) 78 FL (80-99) 81 FL (80-99) Mean Corpuscular Hemoglobin 22.9 PG (27.0-31.0) 24.2 PG (27.0-31.0) 23.5 PG (27.0-31.0) Mean Corpuscular Hemoglobin Concent 27.3 G/DL (32.0-36.0) 30.9 G/DL (32.0-36.0) 29.1 G/DL (32.0-36.0) Red Cell Distribution Width 20.2 % (11.6-14.8) 19.2 % (11.6-14.8) 19.5 % (11.6-14.8) Platelet Count 247 K/UL (150-450) 248 K/UL (150-450) 249 K/UL (150-450) Mean Platelet Volume 6.2 FL (6.5-10.1) 6.5 FL (6.5-10.1) 6.4 FL (6.5-10.1) Neutrophils (%) (Auto) 58.2 % (45.0-75.0) % (45.0-75.0) % (45.0-75.0) Lymphocytes (%) (Auto) 20.8 % (20.0-45.0) % (20.0-45.0) % (20.0-45.0) Monocytes (%) (Auto) 17.6 % (1.0-10.0) % (1.0-10.0) % (1.0-10.0) Eosinophils (%) (Auto) 1.9 % (0.0-3.0) % (0.0-3.0) % (0.0-3.0) Basophils (%) (Auto) 1.5 % (0.0-2.0) % (0.0-2.0) % (0.0-2.0) Prothrombin Time 14.0 SEC (9.30-11.50) Prothromb Time International Ratio 1.3 (0.9-1.1) Activated Partial Thromboplast Time 33 SEC (23-33) Sodium Level 134 MMOL/L (136-145) 135 MMOL/L (136-145) Potassium Level 3.0 MMOL/L (3.5-5.1) 3.4 MMOL/L (3.5-5.1) Chloride Level 98 MMOL/L (98-107) 99 MMOL/L (98-107) Carbon Dioxide Level 20 MMOL/L (21-32) 21 MMOL/L (21-32) Anion Gap 16 mmol/L (5-15) 15 mmol/L (5-15) Blood Urea Nitrogen 2 mg/dL (7-18) 2 mg/dL (7-18) Creatinine 0.8 MG/DL (0.55-1.30) 0.7 MG/DL (0.55-1.30) Estimat Glomerular Filtration Rate > 60 mL/min (>60) > 60 mL/min (>60) Glucose Level 329 MG/DL (74-106) 288 MG/DL (74-106) Calcium Level 8.8 MG/DL (8.5-10.1) 8.9 MG/DL (8.5-10.1) Phosphorus Level 2.2 MG/DL (2.5-4.9) 2.3 MG/DL (2.5-4.9) Magnesium Level 1.3 MG/DL (1.8-2.4) 1.3 MG/DL (1.8-2.4) Iron Level 15 ug/dL (50-175) Total Iron Binding Capacity 268 ug/dL (250-450) Percent Iron Saturation 6 % (15-50) Unsaturated Iron Binding 253 ug/dL (112-346) Ferritin 18 NG/ML (8-388) Total Bilirubin 1.2 MG/DL (0.2-1.0) 1.0 MG/DL (0.2-1.0) Direct Bilirubin 0.7 MG/DL (0.0-0.3) Aspartate Amino Transf (AST/SGOT) 34 U/L (15-37) 29 U/L (15-37) Alanine Aminotransferase (ALT/SGPT) 23 U/L (12-78) 21 U/L (12-78) Alkaline Phosphatase 237 U/L (46-116) 236 U/L (46-116) Total Protein 8.3 G/DL (6.4-8.2) 8.5 G/DL (6.4-8.2) Albumin 2.3 G/DL (3.4-5.0) 2.3 G/DL (3.4-5.0) Globulin 6.0 g/dL 6.2 g/dL Albumin/Globulin Ratio 0.4 (1.0-2.7) 0.4 (1.0-2.7) Vitamin B12 Level 877 PG/ML (193-986) Folate 17.5 NG/ML (3.1-17.5) Differential Total Cells Counted 100 Neutrophils % (Manual) 62 % (45-75) Lymphocytes % (Manual) 15 % (20-45) Monocytes % (Manual) 22 % (1-10) Eosinophils % (Manual) 1 % (0-3) Basophils % (Manual) 0 % (0-2) Band Neutrophils 0 % (0-8) Nucleated Red Blood Cells 1 /100 WBC Platelet Estimate Adequate Platelet Morphology Normal Hypochromasia 2+ Anisocytosis 2+ Erythrocyte Sedimentation Rate 113 MM/HR (0-15) C-Reactive Protein, Quantitative 5.6 mg/dL (0.00-0.90) EKG Diagnostic Results EP Interpretation: Dr. Pickens Rate: normal - 82 bpm Rhythm: NSR ST Segments: no acute changes ASA given to the pt in ED: No PA Scribe Text This interpretation was scribed by TAMERA Briceño Last Vital Signs Date Time Temp Pulse Resp B/P (MAP) Pulse Ox O2 Delivery O2 Flow Rate FiO2 02/17/17 16:26 98.6 80 16 112/68 100 Room Air Disposition: ADMITTED INPATIENT Condition: Serious Sara Briceño Feb 17, 2017 17:05
[2017-02-17] MEDS ORDERED: Pantoprazole Inj IVP ONE (17:30)
[2017-02-17 17:45] LABS: BASOPHILS % (AUTO) 1.2 % (0.0-2.0); EOSINOPHILS % (AUTO) 1.2 % (0.0-3.0); LYMPHOCYTES % (AUTO) 17.4 % (20.0-45.0); MEAN CORPUSCULAR HEMOGLOBIN 23.3 PG (27.0-31.0); MEAN CORPUSCULAR HGB CONC 28.5 G/DL (32.0-36.0); MEAN CORPUSCULAR VOLUME 82 FL (80-99); MEAN PLATELET VOLUME 5.2 FL (6.5-10.1); MONOCYTES % (AUTO) 14.9 % (1.0-10.0); NEUTROPHILS % (AUTO) 65.3 % (45.0-75.0); PLATELET COUNT 280 K/UL (150-450); RED CELL DISTRIBUTION WIDTH 19.7 % (11.6-14.8); WHITE BLOOD COUNT 10.4 K/UL (4.8-10.8)
[2017-02-17 17:54] LABS: INR 1.3 (0.9-1.1); PROTHROMBIN TIME 13.4 SEC (9.30-11.50)
[2017-02-17 17:59] LABS: ALANINE AMINOTRANSFERASE 26 U/L (12-78); ALBUMIN/GLOBULIN RATIO 0.4 (1.0-2.7); ANION GAP 21 mmol/L (5-15); ASPARTATE AMINO TRANSFERASE 42 U/L (15-37); CALCIUM 9.7 MG/DL (8.5-10.1); CARBON DIOXIDE 17 MMOL/L (21-32); CHLORIDE 93 MMOL/L (98-107); CREATININE 0.8 MG/DL (0.55-1.30); GLOMERULAR FILTRATION RATE > 60 mL/min (>60); SODIUM 131 MMOL/L (136-145); TOTAL PROTEIN 9.5 G/DL (6.4-8.2)
[2017-02-17 18:20] LABS: BILIRUBIN,DIRECT 0.8 MG/DL (0.0-0.3)
[2017-02-17] MEDS ORDERED: MULTIVITAMINS1 EAC2 ORAL (19:09)
[2017-02-17] MEDS ORDERED: VIGAMOX1 DROP LEFT EYE (19:09)
[2017-02-17] MEDS ORDERED: PREDNISOLONE ACE5 ML OP (19:09)
[2017-02-17] MEDS ORDERED: FERROUS SULFAT325 MG ORAL (19:09)
[2017-02-17] MEDS ORDERED: LOVAZA1 GM ORAL (19:09)
[2017-02-17] MEDS ORDERED: OMEPRAZOLE20 M2 ORAL (19:09)
[2017-02-17] MEDS ORDERED: FOLIC ACID1 MG ORAL (19:09)
[2017-02-17] MEDS ORDERED: NAPROXEN500 M2 ORAL (19:09)
[2017-02-17] MEDS: Octreotide Acetate 500 MCG in Sodium Chloride 500ML 499 ML IV SCH (22:00)
[2017-02-17] MEDS ORDERED: SandoSTATIN 50mcg Inj IVP ONE (22:00)
[2017-02-17] MEDS: Pantoprazole 80 MG in NS 250 ML IV SCH (22:00)
[2017-02-17] MEDS ORDERED: Mylanta II UD 30ml ORAL PRN (22:30)
[2017-02-17] MEDS ORDERED: Miralax 17gm pkt ORAL PRN (22:30)
[2017-02-17] MEDS ORDERED: Phytonadione 10 MG in D5W 55 ML IVPB ONE (22:30)
[2017-02-17] MEDS ORDERED: DOPamine 400mg/250ml 250 ML IV SCH (22:30)
[2017-02-17] MEDS ORDERED: Nitroglycerin Subl 0.4mg tab SL PRN (22:30)
[2017-02-17] MEDS ORDERED: Ketorolac 30mg Inj IV PRN (22:30)
[2017-02-17 23:50] VITALS: BP 113/76
[2017-02-18] VITALS (18 sets, daily range): BP systolic 108–132; BP diastolic 64–91
[2017-02-18] MEDS: D5NS 1,000 ML IV SCH ×4 (08:38→22:40)
[2017-02-18] MEDS: Pantoprazole 80 MG in NS 250 ML IV SCH (08:56)
[2017-02-18] MEDS: Octreotide Acetate 500 MCG in Sodium Chloride 500ML 499 ML IV SCH (08:57)
[2017-02-18 09:35] LABS: BASOPHILS % (AUTO) 1.1 % (0.0-2.0); EOSINOPHILS % (AUTO) 2.1 % (0.0-3.0); LYMPHOCYTES % (AUTO) 18.8 % (20.0-45.0); MEAN CORPUSCULAR HEMOGLOBIN 22.7 PG (27.0-31.0); MEAN CORPUSCULAR HGB CONC 26.9 G/DL (32.0-36.0); MEAN CORPUSCULAR VOLUME 84 FL (80-99); MEAN PLATELET VOLUME 6.1 FL (6.5-10.1); MONOCYTES % (AUTO) 16.5 % (1.0-10.0); NEUTROPHILS % (AUTO) 61.6 % (45.0-75.0); PLATELET COUNT 232 K/UL (150-450); RED BLOOD COUNT 3.55 M/UL (4.70-6.10); WHITE BLOOD COUNT 7.7 K/UL (4.8-10.8)
[2017-02-18 09:41] LABS: INR 1.3 (0.9-1.1); PROTHROMBIN TIME 13.9 SEC (9.30-11.50)
[2017-02-18 10:00] LABS: ALANINE AMINOTRANSFERASE 21 U/L (12-78); ALBUMIN/GLOBULIN RATIO 0.4 (1.0-2.7); AMYLASE 56 U/L (25-115); ANION GAP 19 mmol/L (5-15); ASPARTATE AMINO TRANSFERASE 63 U/L (15-37); CALCIUM 8.6 MG/DL (8.5-10.1); CARBON DIOXIDE 16 MMOL/L (21-32); CHLORIDE 99 MMOL/L (98-107); CREATININE 0.8 MG/DL (0.55-1.30); GLOMERULAR FILTRATION RATE > 60 mL/min (>60); LIPASE 74 U/L (73-393); POTASSIUM 2.9 MMOL/L (3.5-5.1); SODIUM 134 MMOL/L (136-145); TOTAL PROTEIN 8.3 G/DL (6.4-8.2)
--- NOTE | 2017-02-18 10:41 | History and Physical ---
History of Present Illness General Date patient seen: Feb 18, 2017 Reason for Hospitalization: Sore Throat Present Illness HPI 51-year-old male presents to the emergency department complaining of sore throat for x2 days and spitting up bright red blood times one day. Patient reports daily drinking 3 beers. Patient also reports black stool 3 days ago and has not had a bowel movement since. He has recently had eye surgery approximately one month ago, but missed his f/u appointment and has a patch over his left eye. Allergies: Coded Allergies: No Known Allergies (Unverified , 12/28/15) Medication History Scheduled Ferrous Sulfate* (Ferrous Sulfate*), 325 MG ORAL DAILY, (Reported) Folic Acid* (Folic Acid*), 1 MG ORAL DAILY, (Reported) Gabapentin* (Gabapentin*), 300 MG ORAL THREE TIMES A DAY, (Reported) Moxifloxacin HCl (Vigamox), 1 DROP LEFT EYE THREE TIMES A DAY, (Reported) Multivitamins* (Multivitamins*), 1 TAB ORAL DAILY, (Reported) Naproxen* (Naproxen*), 500 MG ORAL TWICE A DAY, (Reported) Corea-3 Acid Ethyl Esters (Lovaza), 2 GM ORAL DAILY, (Reported) Omeprazole (Omeprazole), 20 MG ORAL DAILY, (Reported) Pantoprazole* (Protonix*), 40 MG ORAL DAILY, (Reported) Miscellaneous Medications Prednisolone Acetate (Prednisolone Acetate), 5 ML OP, (Reported) Patient History Healthcare decision maker patient Resuscitation status Advanced Directive on File No Past Medical/Surgical History Past Medical/Surgical History: (1) Corneal scar, left eye (2) Anemia (3) ETOH abuse Review of Systems All Other Systems: negative except mentioned in HPI Physical Exam General Appearance: cachetic Lines, tubes and drains: peripheral HEENT: normocephalic, atraumatic Neck: non-tender, normal alignment Respiratory/Chest: chest wall non-tender, lungs clear Breasts: no masses Cardiovascular/Chest: normal peripheral pulses Abdomen: normal bowel sounds Genitourinary/Rectal: normal genital exam Last 24 Hour Vital Signs Date Time Temp Pulse Resp B/P (MAP) Pulse Ox O2 Delivery O2 Flow Rate FiO2 02/18/17 09:00 84 18 117/82 99 Room Air 02/18/17 08:00 82 02/18/17 08:00 98.0 78 18 110/75 99 Room Air 02/18/17 07:17 81 02/18/17 06:47 98.0 88 18 115/74 99 Room Air 02/18/17 04:58 98.0 88 18 115/74 99 Room Air 02/18/17 02:07 98.0 88 18 108/64 99 Room Air 02/17/17 23:50 98.0 87 18 113/76 99 Room Air 02/17/17 17:00 98.0 89 18 129/88 98 Room Air 02/17/17 16:26 98.6 80 16 112/68 100 Room Air Intake and Output 02/18/17 02/19/17 19:00 07:00 Intake Total 371 ml Output Total 210 ml Balance 161 ml IV Total 371 ml Output Urine Total 210 ml Laboratory Tests Test 02/17/17 17:28 02/18/17 08:50 White Blood Count 10.4 K/UL (4.8-10.8) 7.7 K/UL (4.8-10.8) Red Blood Count 3.70 M/UL (4.70-6.10) L 3.55 M/UL (4.70-6.10) L Hemoglobin 8.6 G/DL (14.2-18.0) L 8.0 G/DL (14.2-18.0) L Hematocrit 30.3 % (42.0-52.0) L 29.9 % (42.0-52.0) L Mean Corpuscular Volume 82 FL (80-99) 84 FL (80-99) Mean Corpuscular Hemoglobin 23.3 PG (27.0-31.0) L 22.7 PG (27.0-31.0) L Mean Corpuscular Hemoglobin Concent 28.5 G/DL (32.0-36.0) L 26.9 G/DL (32.0-36.0) L Red Cell Distribution Width 19.7 % (11.6-14.8) H 20.0 % (11.6-14.8) H Platelet Count 280 K/UL (150-450) 232 K/UL (150-450) Mean Platelet Volume 5.2 FL (6.5-10.1) L 6.1 FL (6.5-10.1) L Neutrophils (%) (Auto) 65.3 % (45.0-75.0) 61.6 % (45.0-75.0) Lymphocytes (%) (Auto) 17.4 % (20.0-45.0) L 18.8 % (20.0-45.0) L Monocytes (%) (Auto) 14.9 % (1.0-10.0) H 16.5 % (1.0-10.0) H Eosinophils (%) (Auto) 1.2 % (0.0-3.0) 2.1 % (0.0-3.0) Basophils (%) (Auto) 1.2 % (0.0-2.0) 1.1 % (0.0-2.0) Prothrombin Time 13.4 SEC (9.30-11.50) H 13.9 SEC (9.30-11.50) H Prothromb Time International Ratio 1.3 (0.9-1.1) H 1.3 (0.9-1.1) H Activated Partial Thromboplast Time 32 SEC (23-33) 29 SEC (23-33) Sodium Level 131 MMOL/L (136-145) L 134 MMOL/L (136-145) L Potassium Level 3.0 MMOL/L (3.5-5.1) L 2.9 MMOL/L (3.5-5.1) L Chloride Level 93 MMOL/L (98-107) L 99 MMOL/L (98-107) Carbon Dioxide Level 17 MMOL/L (21-32) L 16 MMOL/L (21-32) L Anion Gap 21 mmol/L (5-15) H 19 mmol/L (5-15) H Blood Urea Nitrogen 4 mg/dL (7-18) L 2 mg/dL (7-18) L Creatinine 0.8 MG/DL (0.55-1.30) 0.8 MG/DL (0.55-1.30) Estimat Glomerular Filtration Rate > 60 mL/min (>60) > 60 mL/min (>60) Glucose Level 279 MG/DL (74-106) H 203 MG/DL (74-106) H Calcium Level 9.7 MG/DL (8.5-10.1) 8.6 MG/DL (8.5-10.1) Total Bilirubin 1.4 MG/DL (0.2-1.0) H 1.2 MG/DL (0.2-1.0) H Direct Bilirubin 0.8 MG/DL (0.0-0.3) H Pending Aspartate Amino Transf (AST/SGOT) 42 U/L (15-37) H 63 U/L (15-37) H Alanine Aminotransferase (ALT/SGPT) 26 U/L (12-78) 21 U/L (12-78) Alkaline Phosphatase 306 U/L (46-116) H 262 U/L (46-116) H Total Protein 9.5 G/DL (6.4-8.2) H 8.3 G/DL (6.4-8.2) H Albumin 2.8 G/DL (3.4-5.0) L 2.3 G/DL (3.4-5.0) L Globulin 6.7 g/dL 6.0 g/dL Albumin/Globulin Ratio 0.4 (1.0-2.7) L 0.4 (1.0-2.7) L Amylase Level 56 U/L (25-115) Lipase 74 U/L (73-393) Height (Feet): 6 Height (Inches): 0.00 Weight (Pounds): 145 Medications Current Medications Medications (Trade) Dose Ordered Sig/Mckenzie Route PRN Reason Start Time Stop Time Status Last Admin Dose Admin Acetaminophen (Tylenol) 650 mg Q4H PRN ORAL fever 02/17/17 22:30 03/19/17 22:29 Al Hydroxide/Mg Hydroxide (Mylanta II) 30 ml Q6H PRN ORAL dyspepsia 02/17/17 22:30 03/19/17 22:29 Dextrose (Dextrose 50%) STAT PRN IV Hypoglycemia 02/17/17 22:30 03/19/17 22:29 Dextrose/Sodium Chloride 1,000 ml @ 100 mls/hr Q10H IV 02/17/17 22:27 03/19/17 22:26 02/18/17 08:38 Diphenhydramine HCl (Benadryl) 25 mg Q6H PRN ORAL Itching/Pruritis 02/17/17 22:30 03/19/17 22:29 Dopamine HCl/ Dextrose 250 ml @ 0 mls/hr Q24H IV 02/17/17 22:30 03/19/17 22:29 Ketorolac Tromethamine (Toradol 30mg) 30 mg Q6H PRN IV moderate pian 4-6 02/17/17 22:30 02/22/17 22:29 Nitroglycerin (Ntg) 0.4 mg Q5M X 3 DOSES PRN SL Prn Chest Pain 02/17/17 22:30 03/19/17 22:29 Octreotide Acetate 500 mcg/ Sodium Chloride 500 ml @ 50 mls/hr Q10H IV 02/17/17 22:00 03/19/17 21:59 02/18/17 08:57 Ondansetron HCl (Zofran) 4 mg Q6H PRN IVP Nausea & Vomiting 02/17/17 22:30 03/19/17 22:29 Pantoprazole 80 mg/Sodium Chloride 250 ml @ 25 mls/hr Q10H IV 02/17/17 22:00 03/19/17 21:59 02/18/17 08:56 Polyethylene Glycol (Miralax) 17 gm HSPRN PRN ORAL Constipation 02/17/17 22:30 03/19/17 22:29 Temazepam (Restoril) 15 mg HSPRN PRN ORAL Insomnia 02/17/17 22:30 02/24/17 22:29 Assessment/Plan Problem List: (1) GI bleed ICD Codes: K92.2 - Gastrointestinal hemorrhage, unspecified SNOMED: 02358362 Qualifiers: Qualified Codes: K92.2 - Gastrointestinal hemorrhage, unspecified (2) Hemoptysis ICD Codes: R04.2 - Hemoptysis SNOMED: 10947475 (3) Anemia ICD Codes: D64.9 - Anemia, unspecified SNOMED: 311145473 Qualifiers: Qualified Codes: D64.9 - Anemia, unspecified (4) Corneal scar, left eye ICD Codes: H17.9 - Unspecified corneal scar and opacity SNOMED: 37652383 Assessment/Plan NPO IV fluids GI Evaluation CT chest and neck. check electrolytes check h/h tumor markers. NADEEN NELSON Feb 18, 2017 10:41
[2017-02-18 10:54] LABS: LACTATE DEHYDROGENASE 199 U/L (81-234)
[2017-02-18 10:56] LABS: BILIRUBIN,DIRECT 0.8 MG/DL (0.0-0.3)
[2017-02-18 11:46] LABS: FOLIC ACID 19.4 NG/ML (3.1-17.5); IRON 20 ug/dL (50-175); TOTAL IRON BINDING CAPACITY 316 ug/dL (250-450)
[2017-02-18 11:54] LABS: ERYTHROCYTE SEDIMENTATION RATE 113 MM/HR (0-15); PATH BLOOD SMEAR/OMC SENT TO PATHOLOGIST
[2017-02-18] MEDS ORDERED: Pantoprazole Inj IVP SCH (12:00)
[2017-02-18] MEDS ORDERED: Potassium Chloride 40 MEQ in D5W 500ml 550 ML IV ONE (12:00)
[2017-02-18 12:03] LABS: RETICULOCYTE COUNT 2.2 % (0.0-2.0)
--- NOTE | 2017-02-18 12:52 | Diagnostic Imaging Report ---
Indication: Dyspnea Comparison: None A single view chest radiograph was obtained. Findings: Cardiomediastinal appearance is within normal limits for age. Pulmonary vascularity is appropriate. The diaphragmatic contour is smooth and costophrenic angles are sharp. No pleural effusions are identified. The bones are unremarkable. Surgical clips noted in the right upper quadrant of abdomen. Impression: No acute findings
--- NOTE | 2017-02-18 15:19 | Diagnostic Imaging Report ---
Indication: Chest pain. Odynophagia. Hemoptysis. Sore throat, pharyngitis. Technique: Continuous helical transaxial imaging of the neck and chest was obtained from the skull base to the upper abdomen after intravenous nonionic contrast administration. Coronal 2-D reformats were also obtained. Automatic Exposure Control was utilized. Total Dose length Product (DLP): [address] Dose Index Volume (CTDIvol): 0.25, 0.15, 8.11, 89.22, 22.06, 16.66 mGy Comparison: none Findings: There is a focal, slight fullness of the esophagus along the left lateral wall (for example image 12 -14 of series 5 or for example image 23-24 of series 7, or image 86 of series 10). Further evaluation with endoscopy is recommended. There is focal thickening of the wall of the esophagus vs. hiatal hernia vs. mass in the lower part of the esophagus near the EG junction. The lungs are clear. Aorta is mildly calcified. There is no adenopathy seen within the chest or neck. The major vessels in the neck enhance normally. The skull base is unremarkable. Mastoids are clear. The tongue base, parapharyngeal fat, oropharynx and hypopharynx appear normal. The epiglottis and aryepiglottic folds, larynx, subglottic airway and trachea appear unremarkable. The heart is unremarkable. The aorta show some mural calcification. Mild degenerative changes of the cervical spine are noted. Cholecystectomy clips demonstrated. CBD is prominent. 3 x 2 cm cyst noted in the caudate lobe of the liver. There is mild basilar atelectasis. Impression: Thickening of the wall of the esophagus vs. mass near the EG vs. small hiatal hernia. In addition there is a mural nodularity noted focally within the upper part of the esophagus. Further evaluation of these findings with EGD is recommended. Posterior basilar atelectasis Atherosclerotic disease Liver cyst Status post cholecystectomy The CT scanner at [facility] is accredited by the [employer] and the scans are performed using dose optimization techniques as appropriate to a performed exam including Automatic Exposure control.
[2017-02-19] VITALS (14 sets, daily range): BP systolic 97–125; BP diastolic 66–79
[2017-02-19 05:42] LABS: BASOPHILS % (AUTO) 1.5 % (0.0-2.0); EOSINOPHILS % (AUTO) 1.9 % (0.0-3.0); LYMPHOCYTES % (AUTO) 20.8 % (20.0-45.0); MEAN CORPUSCULAR HEMOGLOBIN 22.9 PG (27.0-31.0); MEAN CORPUSCULAR HGB CONC 27.3 G/DL (32.0-36.0); MEAN CORPUSCULAR VOLUME 84 FL (80-99); MEAN PLATELET VOLUME 6.2 FL (6.5-10.1); MONOCYTES % (AUTO) 17.6 % (1.0-10.0); NEUTROPHILS % (AUTO) 58.2 % (45.0-75.0); PLATELET COUNT 247 K/UL (150-450); RED BLOOD COUNT 3.54 M/UL (4.70-6.10); RED CELL DISTRIBUTION WIDTH 20.2 % (11.6-14.8); WHITE BLOOD COUNT 7.9 K/UL (4.8-10.8)
[2017-02-19] MEDS ORDERED: D5NS 1,000 ML IV SCH (06:15)
[2017-02-19] MEDS ORDERED: Nitroglycerin Subl 0.4mg tab SL PRN ×2 (06:15→16:30)
[2017-02-19] MEDS ORDERED: Pantoprazole Inj IVP SCH (09:00)
[2017-02-19] MEDS ORDERED: KCl 10% 40mEq/30ml liquid ORAL ONE (09:00)
[2017-02-19] MEDS ORDERED: Mylanta II UD 30ml ORAL PRN ×2 (10:30→16:30)
--- NOTE | 2017-02-19 11:57 | Pulmonology Progress Note ---
Assessment/Plan Problems: (1) GI bleed (2) Hemoptysis (3) Anemia (4) Corneal scar, left eye Assessment/Plan h/h stable Ct chest, neck reviewed, abnormal esophagus. GI informed med/surg Subjective ROS Limited/Unobtainable: No HEENT: Repors: no symptoms Allergies: Coded Allergies: No Known Allergies (Unverified , 12/28/15) Objective Last 24 Hour Vital Signs Date Time Temp Pulse Resp B/P (MAP) Pulse Ox O2 Delivery O2 Flow Rate FiO2 02/19/17 09:14 98.1 20 100/73 100 Room Air 02/19/17 08:00 98.1 89 20 100/73 100 Room Air 02/19/17 06:15 98 18 98/66 99 Room Air 02/19/17 06:00 87 18 121/77 99 Room Air 02/19/17 05:00 84 14 122/79 99 Room Air 02/19/17 04:00 82 02/19/17 04:00 98.0 90 14 122/79 100 Room Air 02/19/17 03:00 81 18 102/75 99 Room Air 02/19/17 02:00 87 18 113/69 99 Room Air 02/19/17 01:00 80 14 97/67 99 Room Air 02/19/17 00:00 98.2 94 17 112/77 99 Room Air 02/19/17 00:00 94 02/18/17 23:00 91 18 113/78 98 Room Air 02/18/17 22:00 91 19 123/88 100 Room Air 02/18/17 21:00 91 17 118/81 100 Room Air 02/18/17 20:00 88 02/18/17 20:00 97.8 88 18 125/85 99 Room Air 02/18/17 19:00 90 18 123/85 99 Room Air 02/18/17 18:00 92 18 118/88 99 Room Air 02/18/17 17:00 90 18 117/85 99 Room Air 02/18/17 16:00 98.5 82 18 110/88 99 Room Air 02/18/17 16:00 78 02/18/17 15:00 87 18 125/86 99 Room Air 02/18/17 14:00 76 18 129/88 99 Room Air 02/18/17 13:00 78 18 126/85 99 Room Air 02/18/17 12:00 98.2 84 18 132/89 99 Room Air Intake and Output 02/19/17 02/20/17 19:00 07:00 Intake Total 200 ml Output Total 200 ml Balance 0 ml Intake Oral 200 ml Output Urine Total 200 ml General Appearance: cachetic HEENT: normocephalic, anicteric Respiratory/Chest: chest wall non-tender, no respiratory distress Cardiovascular: normal rate Abdomen: normal bowel sounds, soft, non tender Genitourinary: normal external genitalia Skin: no lesions Laboratory Tests 02/19/17 05:00: White Blood Count 7.9, Red Blood Count 3.54L, Hemoglobin 8.1L, Hematocrit 29.7L , Mean Corpuscular Volume 84, Mean Corpuscular Hemoglobin 22.9L, Mean Corpuscular Hemoglobin Concent 27.3L, Red Cell Distribution Width 20.2H, Platelet Count 247, Mean Platelet Volume 6.2L, Neutrophils (%) (Auto) 58.2, Lymphocytes (%) (Auto) 20.8, Monocytes (%) (Auto) 17.6H, Eosinophils (%) (Auto) 1.9, Basophils (%) (Auto) 1.5 Current Medications Medications (Trade) Dose Ordered Sig/Mckenzie Route PRN Reason Start Time Stop Time Status Last Admin Dose Admin Acetaminophen (Tylenol) 650 mg Q4H PRN ORAL fever 02/19/17 06:30 03/19/17 22:29 Al Hydroxide/Mg Hydroxide (Mylanta II) 30 ml Q6H PRN ORAL dyspepsia 02/19/17 10:30 03/19/17 22:29 Dextrose (Dextrose 50%) STAT PRN IV Hypoglycemia 02/19/17 22:30 03/19/17 22:29 Dextrose/Sodium Chloride 1,000 ml @ 75 mls/hr [id number] IV 02/19/17 06:15 03/20/17 11:29 02/19/17 06:30 Diphenhydramine HCl (Benadryl) 25 mg Q6H PRN ORAL Itching/Pruritis 02/19/17 10:30 03/19/17 22:29 Nitroglycerin (Ntg) 0.4 mg Q5M X 3 DOSES PRN SL Prn Chest Pain 02/19/17 06:15 03/19/17 22:29 Ondansetron HCl (Zofran) 4 mg Q6H PRN IVP Nausea & Vomiting 02/19/17 10:30 03/19/17 22:29 Pantoprazole (Protonix) 40 mg DAILY IVP 02/19/17 09:00 03/20/17 11:59 02/19/17 09:06 Polyethylene Glycol (Miralax) 17 gm HSPRN PRN ORAL Constipation 02/19/17 22:30 03/19/17 22:29 Temazepam (Restoril) 15 mg HSPRN PRN ORAL Insomnia 02/19/17 22:30 02/24/17 22:29 NADEEN NELSON Feb 19, 2017 11:57
--- NOTE | 2017-02-19 14:09 | Diagnostic Imaging Report ---
APPROVED REPORT CPT Code: 30861 Present Symptoms Comments: R/O DVT RIGHT LEG: Venous imaging reveals recanalized chronic thrombus in the superficial femoral vein. Large collateral vein noted anterior to the superficial femoral artery. The remainder of the deep venous system is within normal limits. There is no evidence of thrombus in the common femoral, popliteal or calf veins. The greater saphenous vein is also within normal limits. Doppler indicates normal spontaneous flow within these segments. LEFT LEG: Venous imaging reveals a patent deep venous system. There is no evidence of thrombus within the femoral, popliteal or tibial segments. The greater saphenous vein is also within normal limits. Doppler indicates normal spontaneous flow within these segments. There is no evidence of acute deep vein thrombosis.
[2017-02-19] MEDS ORDERED: Tubing IV Secondary IV ONE (15:09)
[2017-02-19] MEDS ORDERED: D5NS 1000ml IV ONE (15:09)
--- NOTE | 2017-02-19 15:23 | GI Initial Consult Note ---
History of Present Illness General Date patient seen: Feb 19, 2017 Time patient seen: 15:21 Reason for Hospitalization: Sore Throat Referring physician: NADEEN DOZIER Reason for Consultation: R/O ESOPHAGEAL MASS Present Illness HPI 51-year-old male presents to the emergency department complaining of sore throat that he rates as 10 out of 10 in severity and described a burning sensation x2 days. Patient also reports that he is spitting up bright red blood times one day. Patient reports daily drinking 3 beers. Patient also reports black stool 3 days ago and has not had a bowel movement since. Patient does state that he is taking iron has recently had eye surgery approximately one month ago. GI consulted for esophageal wall thickening vs esophageal mass. HPI as noted above. Pt seen on floor, awake A&Ox4 NAD with no active s/sx of N/V/D. Presents today with anemia, history of iron deficiency. CT AP reveals possible esophageal wall thicken vs mass and recommended an EGD. The patient has EGD/ colonoscopy performed back in August 2016 as noted below. Endoscopy Procedure Note Indication for Procedure: gib Procedures Performed: EGD, colonoscopy Operative Findings/Diagnosis: SUMMARY OF FINDINGS: 1. Questionable portal hypertensive gastropathy. 2. Gastritis. 3. Duodenitis. 4. Rectal prolapse. 5. Rectal varices. August 31, 2016 09:01 Home Meds Reported Medications Prednisolone Acetate (PREDNISOLONE ACETATE) 5 Ml Drops.susp, 5 ML OP 02/17/17 Omeprazole (OMEPRAZOLE) 20 Mg Capsule.dr, 20 MG ORAL DAILY, CAP 02/17/17 Naproxen* (NAPROXEN*) 500 Mg Tablet, 500 MG ORAL TWICE A DAY, TAB 02/17/17 Moxifloxacin HCl (Vigamox) 3 Ml Drops, 1 DROP LEFT EYE THREE TIMES A DAY, #3 ML 0 Refills 02/17/17 Multivitamins* (MULTIVITAMINS*) 1 Each Tablet, 1 TAB ORAL DAILY, TAB 0 Refills 02/17/17 Ferrous Sulfate* (FERROUS SULFATE*) 325 Mg Tablet, 325 MG ORAL DAILY, #30 TAB 0 Refills 02/17/17 [place]-3 Acid Ethyl Esters (LOVAZA) 1 Gm Capsule, 2 GM ORAL DAILY, #30 CAP 0 Refills 02/17/17 Folic Acid* (FOLIC ACID*) 1 Mg Tablet, 1 MG ORAL DAILY, TAB 02/17/17 Pantoprazole* (PROTONIX*) 40 Mg Tablet.dr, 40 MG ORAL DAILY for Nausea & Vomiting, TAB 09/01/16 Gabapentin* (GABAPENTIN*) 300 Mg Capsule, 300 MG ORAL THREE TIMES A DAY, CAP 0 Refills 08/29/16 Med list reviewed/reconciled: Yes Allergies: Coded Allergies: No Known Allergies (Unverified , 12/28/15) Patient History History Provided By: Patient, Medical Record PMH Narrative Past Medical History: see triage record Past Surgical History: none Pertinent Family History: none Reviewed Nursing Documentation: PMH: Agreed, PSxH: Agreed Nursing Documentation-PMH Hx Cardiac Problems: No Hx Cancer: No Hx Gastrointestinal Problems: Yes - ulcers Hx Neurological Problems: Yes - "numbness to feet" Social History: Reports: alcohol use Review of Systems All Other Systems: negative except mentioned in HPI Physical Exam Vital Signs Date Time Temp Pulse Resp B/P (MAP) Pulse Ox O2 Delivery O2 Flow Rate FiO2 02/17/17 16:26 98.6 80 16 112/68 100 Room Air Sp02 EP Interpretation: reviewed, normal Labs Laboratory Tests Test 02/19/17 05:00 White Blood Count 7.9 K/UL (4.8-10.8) Red Blood Count 3.54 M/UL (4.70-6.10) L Hemoglobin 8.1 G/DL (14.2-18.0) L Hematocrit 29.7 % (42.0-52.0) L Mean Corpuscular Volume 84 FL (80-99) Mean Corpuscular Hemoglobin 22.9 PG (27.0-31.0) L Mean Corpuscular Hemoglobin Concent 27.3 G/DL (32.0-36.0) L Red Cell Distribution Width 20.2 % (11.6-14.8) H Platelet Count 247 K/UL (150-450) Mean Platelet Volume 6.2 FL (6.5-10.1) L Neutrophils (%) (Auto) 58.2 % (45.0-75.0) Lymphocytes (%) (Auto) 20.8 % (20.0-45.0) Monocytes (%) (Auto) 17.6 % (1.0-10.0) H Eosinophils (%) (Auto) 1.9 % (0.0-3.0) Basophils (%) (Auto) 1.5 % (0.0-2.0) General Appearance: well appearing, no apparent distress, alert Head: normocephalic EENT: PERRL/EOMI, normal ENT inspection Neck: supple Respiratory: normal breath sounds, no respiratory distress Cardiovascular: normal rate Gastrointestinal: normal inspection, non tender, soft, normal bowel sounds, non -distended Rectal: deferred Genitourinary: deferred Musculoskeletal: normal inspection, back normal Neurologic: normal inspection, alert, oriented x3, responsive Psychiatric: normal inspection, judgement/insight normal, memory normal Skin: normal inspection, normal color, no rash, warm/dry, palpation normal, well hydrated Lymphatic: normal inspection, no adenopathy Current Medications Current Medications Medications (Trade) Dose Ordered Sig/Mckenzie Route PRN Reason Start Time Stop Time Status Last Admin Dose Admin Acetaminophen (Tylenol) 650 mg Q4H PRN ORAL fever 02/19/17 06:30 03/19/17 22:29 Al Hydroxide/Mg Hydroxide (Mylanta II) 30 ml Q6H PRN ORAL dyspepsia 02/19/17 10:30 03/19/17 22:29 Dextrose (Dextrose 50%) STAT PRN IV Hypoglycemia 02/19/17 22:30 03/19/17 22:29 Dextrose/Sodium Chloride 1,000 ml @ 75 mls/hr [id number] IV 02/19/17 06:15 03/20/17 11:29 02/19/17 06:30 Diphenhydramine HCl (Benadryl) 25 mg Q6H PRN ORAL Itching/Pruritis 02/19/17 10:30 03/19/17 22:29 Nitroglycerin (Ntg) 0.4 mg Q5M X 3 DOSES PRN SL Prn Chest Pain 02/19/17 06:15 03/19/17 22:29 Ondansetron HCl (Zofran) 4 mg Q6H PRN IVP Nausea & Vomiting 02/19/17 10:30 03/19/17 22:29 Pantoprazole (Protonix) 40 mg DAILY IVP 02/19/17 09:00 03/20/17 11:59 02/19/17 09:06 Polyethylene Glycol (Miralax) 17 gm HSPRN PRN ORAL Constipation 02/19/17 22:30 03/19/17 22:29 Temazepam (Restoril) 15 mg HSPRN PRN ORAL Insomnia 02/19/17 22:30 02/24/17 22:29 GI: Plan Problems: (1) Esophageal thickening (2) Anemia (3) GI bleed (4) Hemoptysis (5) ETOH abuse Plan s/p EGD/colonoscopy SUMMARY OF FINDINGS: August 31, 2016 09:01 1. Questionable portal hypertensive gastropathy. 2. Gastritis. 3. Duodenitis. 4. Rectal prolapse. 5. Rectal varices. CT AP reviewed >> Thickening of the wall of the esophagus vs. mass near the EG vs. small hiatal hernia. In addition there is a mural nodularity noted focally within the upper part of the esophagus. Further evaluation of these findings with EGD is recommended. history of iron deficiency defer EGD at this time given recent endoscopy monitor H&H, prn transfusions iron panel given history ppi bowel regime ppi fu labs, CEA Discussed with Dr. Diaz. Thank you for this patient referral, we will follow. Humaira Solorzano N.P. Feb 19, 2017 15:23
[2017-02-19] MEDS ORDERED: Miralax 17gm pkt ORAL PRN ×2 (16:30→22:30)
[2017-02-19] MEDS: D5NS 1,000 ML IV SCH (19:15)
[2017-02-20 00:32] VITALS: BP 120/70
[2017-02-20 04:00] VITALS: BP 122/78
[2017-02-20] MEDS: D5NS 1,000 ML IV SCH ×2 (05:14→20:10)
[2017-02-20 05:21] LABS: INR 1.3 (0.9-1.1)
[2017-02-20 05:26] LABS: ANION GAP 16 mmol/L (5-15); CALCIUM 8.8 MG/DL (8.5-10.1); CARBON DIOXIDE 20 MMOL/L (21-32); CHLORIDE 98 MMOL/L (98-107); CREATININE 0.8 MG/DL (0.55-1.30); GLOMERULAR FILTRATION RATE > 60 mL/min (>60); SODIUM 134 MMOL/L (136-145)
[2017-02-20 05:35] LABS: IRON 15 ug/dL (50-175); MEAN CORPUSCULAR HEMOGLOBIN 24.2 PG (27.0-31.0); MEAN CORPUSCULAR HGB CONC 30.9 G/DL (32.0-36.0); MEAN CORPUSCULAR VOLUME 78 FL (80-99); MEAN PLATELET VOLUME 6.5 FL (6.5-10.1); PLATELET COUNT 248 K/UL (150-450); RED BLOOD COUNT 3.67 M/UL (4.70-6.10); RED CELL DISTRIBUTION WIDTH 19.2 % (11.6-14.8); TOTAL IRON BINDING CAPACITY 268 ug/dL (250-450)
[2017-02-20 05:42] LABS: ALANINE AMINOTRANSFERASE 23 U/L (12-78); ALBUMIN/GLOBULIN RATIO 0.4 (1.0-2.7); ASPARTATE AMINO TRANSFERASE 34 U/L (15-37); TOTAL PROTEIN 8.3 G/DL (6.4-8.2)
[2017-02-20 05:51] LABS: MAGNESIUM 1.3 MG/DL (1.8-2.4); PHOSPHORUS 2.2 MG/DL (2.5-4.9)
[2017-02-20 06:01] LABS: FOLIC ACID 17.5 NG/ML (3.1-17.5)
[2017-02-20 06:11] LABS: BILIRUBIN,DIRECT 0.7 MG/DL (0.0-0.3)
[2017-02-20 08:00] VITALS: BP 101/59
--- NOTE | 2017-02-20 08:28 | Pulmonology Progress Note ---
Assessment/Plan Problems: (1) GI bleed (2) Hemoptysis (3) Anemia (4) Corneal scar, left eye Assessment/Plan h/h stable Ct chest, neck reviewed, abnormal esophagus. GI informed iv venofer EGD today Subjective ROS Limited/Unobtainable: No Constitutional: Reports: no symptoms HEENT: Repors: no symptoms Respiratory: Reports: no symptoms Allergies: Coded Allergies: No Known Allergies (Unverified , 12/28/15) Objective Last 24 Hour Vital Signs Date Time Temp Pulse Resp B/P (MAP) Pulse Ox O2 Delivery O2 Flow Rate FiO2 02/20/17 04:00 97.5 95 18 122/78 94 Room Air 02/20/17 00:32 98.1 100 19 120/70 95 Room Air 02/19/17 21:01 97.7 108 20 118/78 96 Room Air 02/19/17 20:00 97.7 108 20 118/78 96 Room Air 02/19/17 16:00 98.0 96 19 104/73 100 Room Air 02/19/17 12:00 98.1 89 20 125/70 95 Room Air 02/19/17 09:14 98.1 20 100/73 100 Room Air General Appearance: WD/WN HEENT: normocephalic, atraumatic, PERRL Respiratory/Chest: lungs clear Cardiovascular: normal peripheral pulses, normal rate Abdomen: normal bowel sounds, soft, non tender Genitourinary: normal external genitalia Extremities: no cyanosis Skin: no rash, no lesions Microbiology Date/Time Source Procedure Growth Status 02/18/17 06:00 Nasal Nares MRSA Culture - Final NO METHICILLIN RESISTANT STAPH AUREUS... Complete 02/18/17 06:00 Rectum VRE Culture - Final NO VANCOMYCIN RESISTANT ENTEROCOCCUS ... Complete Laboratory Tests 02/20/17 03:55: White Blood Count 8.0, Red Blood Count 3.67L, Hemoglobin 8.9L, Hematocrit 28.7L , Mean Corpuscular Volume 78L, Mean Corpuscular Hemoglobin 24.2L, Mean Corpuscular Hemoglobin Concent 30.9L, Red Cell Distribution Width 19.2H, Platelet Count 248, Mean Platelet Volume 6.5, Neutrophils (%) (Auto) , Lymphocytes (%) (Auto) , Monocytes (%) (Auto) , Eosinophils (%) (Auto) , Basophils (%) (Auto) , Prothrombin Time 14.0H, Prothromb Time International Ratio 1.3H, Activated Partial Thromboplast Time 33, Sodium Level 134L, Potassium Level 3.0L, Chloride Level 98, Carbon Dioxide Level 20L, Anion Gap 16H , Blood Urea Nitrogen 2L, Creatinine 0.8, Estimat Glomerular Filtration Rate > 60, Glucose Level 329H, Calcium Level 8.8, Phosphorus Level 2.2L, Magnesium Level 1.3L, Iron Level 15L, Total Iron Binding Capacity 268, Percent Iron Saturation 6L, Unsaturated Iron Binding 253, Ferritin 18, Total Bilirubin 1.2H, Direct Bilirubin 0.7H, Aspartate Amino Transf (AST/SGOT) 34, Alanine Aminotransferase (ALT/SGPT) 23, Alkaline Phosphatase 237H, Total Protein 8.3H, Albumin 2.3L, Globulin 6.0, Albumin/Globulin Ratio 0.4L, Vitamin B12 Level 877, Folate 17.5 Current Medications Medications (Trade) Dose Ordered Sig/Mckenzie Route PRN Reason Start Time Stop Time Status Last Admin Dose Admin Acetaminophen (Tylenol) 650 mg Q4H PRN ORAL fever 02/19/17 17:00 03/19/17 16:59 Al Hydroxide/Mg Hydroxide (Mylanta II) 30 ml Q6H PRN ORAL dyspepsia 02/19/17 16:30 03/19/17 22:29 Dextrose (Dextrose 50%) STAT PRN IV Hypoglycemia 02/19/17 16:30 03/19/17 16:29 Dextrose/Sodium Chloride 1,000 ml @ 75 mls/hr [id number] IV 02/19/17 17:30 03/20/17 17:29 02/20/17 05:14 Diphenhydramine HCl (Benadryl) 25 mg Q6H PRN ORAL Itching/Pruritis 02/19/17 16:30 03/19/17 22:29 Nitroglycerin (Ntg) 0.4 mg Q5M X 3 DOSES PRN SL Prn Chest Pain 02/19/17 16:30 03/19/17 16:29 Ondansetron HCl (Zofran) 4 mg Q6H PRN IVP Nausea & Vomiting 02/19/17 16:30 03/19/17 22:29 Pantoprazole (Protonix) 40 mg DAILY IVP 02/20/17 09:00 03/20/17 11:59 Polyethylene Glycol (Miralax) 17 gm HSPRN PRN ORAL Constipation 02/19/17 16:30 03/19/17 16:29 Temazepam (Restoril) 15 mg HSPRN PRN ORAL Insomnia 02/19/17 16:30 02/24/17 16:29 NADEEN NELSON Feb 20, 2017 08:28
[2017-02-20] MEDS: Pantoprazole Inj IVP SCH (08:29)
[2017-02-20] MEDS ORDERED: Iron Sucrose 100 MG in NS 55 ML IV ONE (09:30)
--- NOTE | 2017-02-20 09:53 | General Progress Note ---
Assessment/Plan Problem List: (1) ETOH abuse ICD Codes: F10.10 - Alcohol abuse, uncomplicated SNOMED: 88634785 (2) Esophageal thickening ICD Codes: K22.8 - Other specified diseases of esophagus SNOMED: 11809927 (3) Hemoptysis ICD Codes: R04.2 - Hemoptysis SNOMED: 64979026 (4) Anemia ICD Codes: D64.9 - Anemia, unspecified SNOMED: 260876611 Qualifiers: Qualified Codes: D64.9 - Anemia, unspecified Assessment/Plan iv iron esophagogram stoo ob Subjective Allergies: Coded Allergies: No Known Allergies (Unverified , 12/28/15) Subjective no event Objective Last 24 Hour Vital Signs Date Time Temp Pulse Resp B/P (MAP) Pulse Ox O2 Delivery O2 Flow Rate FiO2 02/20/17 08:00 97.7 95 20 101/59 98 Room Air 02/20/17 04:00 97.5 95 18 122/78 94 Room Air 02/20/17 00:32 98.1 100 19 120/70 95 Room Air 02/19/17 21:01 97.7 108 20 118/78 96 Room Air 02/19/17 20:00 97.7 108 20 118/78 96 Room Air 02/19/17 16:00 98.0 96 19 104/73 100 Room Air 02/19/17 12:00 98.1 89 20 125/70 95 Room Air Intake and Output 02/20/17 02/21/17 19:00 07:00 Output Total 700 ml Balance -700 ml Output Urine Total 700 ml Laboratory Tests 02/20/17 03:55: White Blood Count 8.0, Red Blood Count 3.67L, Hemoglobin 8.9L, Hematocrit 28.7L , Mean Corpuscular Volume 78L, Mean Corpuscular Hemoglobin 24.2L, Mean Corpuscular Hemoglobin Concent 30.9L, Red Cell Distribution Width 19.2H, Platelet Count 248, Mean Platelet Volume 6.5, Neutrophils (%) (Auto) , Lymphocytes (%) (Auto) , Monocytes (%) (Auto) , Eosinophils (%) (Auto) , Basophils (%) (Auto) , Prothrombin Time 14.0H, Prothromb Time International Ratio 1.3H, Activated Partial Thromboplast Time 33, Sodium Level 134L, Potassium Level 3.0L, Chloride Level 98, Carbon Dioxide Level 20L, Anion Gap 16H , Blood Urea Nitrogen 2L, Creatinine 0.8, Estimat Glomerular Filtration Rate > 60, Glucose Level 329H, Calcium Level 8.8, Phosphorus Level 2.2L, Magnesium Level 1.3L, Iron Level 15L, Total Iron Binding Capacity 268, Percent Iron Saturation 6L, Unsaturated Iron Binding 253, Ferritin 18, Total Bilirubin 1.2H, Direct Bilirubin 0.7H, Aspartate Amino Transf (AST/SGOT) 34, Alanine Aminotransferase (ALT/SGPT) 23, Alkaline Phosphatase 237H, Total Protein 8.3H, Albumin 2.3L, Globulin 6.0, Albumin/Globulin Ratio 0.4L, Vitamin B12 Level 877, Folate 17.5 Height (Feet): 6 Height (Inches): 0.00 Weight (Pounds): 145 General Appearance: alert EENT: normal ENT inspection Neck: supple Cardiovascular: normal rate Respiratory/Chest: decreased breath sounds Abdomen: normal bowel sounds, non tender, soft Extremities: non-tender BASILIA BOWLING Feb 20, 2017 09:53
[2017-02-20 12:00] VITALS: BP 100/68
[2017-02-20] MEDS ORDERED: Tubing IV Secondary IV ONE (15:20)
[2017-02-20] MEDS ORDERED: D5 1/2NS 1000ml IV ONE (15:20)
[2017-02-20] MEDS ORDERED: D5NS 1000ml IV ONE (15:20)
[2017-02-20 16:00] VITALS: BP 108/69
[2017-02-20 20:51] VITALS: BP 138/72
[2017-02-21] VITALS: BP 138/72
[2017-02-21 04:47] VITALS: BP 112/70
--- NOTE | 2017-02-21 06:43 | General Progress Note ---
Assessment/Plan Problem List: (1) ETOH abuse ICD Codes: F10.10 - Alcohol abuse, uncomplicated SNOMED: 34881943 (2) Esophageal thickening ICD Codes: K22.8 - Other specified diseases of esophagus SNOMED: 81198747 (3) Hemoptysis ICD Codes: R04.2 - Hemoptysis SNOMED: 31832635 (4) Anemia ICD Codes: D64.9 - Anemia, unspecified SNOMED: 348411926 Qualifiers: Qualified Codes: D64.9 - Anemia, unspecified Assessment/Plan iv iron esophagogram stoo ob repeat labs CEA Subjective ROS Limited/Unobtainable: Yes Allergies: Coded Allergies: No Known Allergies (Unverified , 12/28/15) Subjective no event Objective Last 24 Hour Vital Signs Date Time Temp Pulse Resp B/P (MAP) Pulse Ox O2 Delivery O2 Flow Rate FiO2 02/21/17 04:47 98.9 110 18 112/70 98 Room Air 02/21/17 00:00 99.8 113 19 138/72 99 Room Air 02/20/17 20:51 99.8 113 19 138/72 99 Room Air 02/20/17 16:00 97.0 95 20 108/69 99 Room Air 02/20/17 12:00 98.0 92 20 100/68 100 Room Air 02/20/17 08:00 97.7 95 20 101/59 98 Room Air Height (Feet): 6 Height (Inches): 0.00 Weight (Pounds): 145 General Appearance: alert EENT: normal ENT inspection Neck: supple Cardiovascular: normal rate Respiratory/Chest: decreased breath sounds Abdomen: normal bowel sounds, non tender, soft Extremities: non-tender BASILIA BOWLING Feb 21, 2017 06:43
[2017-02-21 08:00] VITALS: BP 108/73
[2017-02-21] MEDS: Pantoprazole Inj IVP SCH (08:17)
[2017-02-21] MEDS: D5NS 1,000 ML IV SCH ×2 (08:21→23:01)
[2017-02-21 08:40] LABS: MEAN CORPUSCULAR HEMOGLOBIN 23.5 PG (27.0-31.0); MEAN CORPUSCULAR HGB CONC 29.1 G/DL (32.0-36.0); MEAN CORPUSCULAR VOLUME 81 FL (80-99); MEAN PLATELET VOLUME 6.4 FL (6.5-10.1); PLATELET COUNT 249 K/UL (150-450); RED CELL DISTRIBUTION WIDTH 19.5 % (11.6-14.8)
[2017-02-21 09:05] LABS: ALANINE AMINOTRANSFERASE 21 U/L (12-78); ALBUMIN/GLOBULIN RATIO 0.4 (1.0-2.7); ANION GAP 15 mmol/L (5-15); ASPARTATE AMINO TRANSFERASE 29 U/L (15-37); CALCIUM 8.9 MG/DL (8.5-10.1); CARBON DIOXIDE 21 MMOL/L (21-32); CHLORIDE 99 MMOL/L (98-107); CREATININE 0.7 MG/DL (0.55-1.30); CRP QUANT 5.6 mg/dL (0.00-0.90); GLOMERULAR FILTRATION RATE > 60 mL/min (>60); MAGNESIUM 1.3 MG/DL (1.8-2.4); PHOSPHORUS 2.3 MG/DL (2.5-4.9); POTASSIUM 3.4 MMOL/L (3.5-5.1); SODIUM 135 MMOL/L (136-145); TOTAL PROTEIN 8.5 G/DL (6.4-8.2)
[2017-02-21 09:58] LABS: ERYTHROCYTE SEDIMENTATION RATE 113 MM/HR (0-15)
--- NOTE | 2017-02-21 10:49 | Pulmonology Progress Note ---
Assessment/Plan Problems: (1) GI bleed (2) Hemoptysis (3) Anemia (4) Corneal scar, left eye Assessment/Plan h/h stable Ct chest, neck reviewed, abnormal esophagus. GI informed EGD in am Subjective ROS Limited/Unobtainable: No Constitutional: Reports: no symptoms HEENT: Repors: dysphagia Respiratory: Reports: no symptoms Cardiovascular: Reports: no symptoms Allergies: Coded Allergies: No Known Allergies (Unverified , 12/28/15) Objective Last 24 Hour Vital Signs Date Time Temp Pulse Resp B/P (MAP) Pulse Ox O2 Delivery O2 Flow Rate FiO2 02/21/17 08:00 99.1 107 20 108/73 99 Room Air 02/21/17 04:47 98.9 110 18 112/70 98 Room Air 02/21/17 00:00 99.8 113 19 138/72 99 Room Air 02/20/17 20:51 99.8 113 19 138/72 99 Room Air 02/20/17 16:00 97.0 95 20 108/69 99 Room Air 02/20/17 12:00 98.0 92 20 100/68 100 Room Air Intake and Output 02/21/17 02/22/17 19:00 07:00 Intake Total 240 ml Balance 240 ml Intake Oral 240 ml General Appearance: cachetic HEENT: normocephalic, atraumatic Respiratory/Chest: chest wall non-tender, lungs clear, chest wall tender Cardiovascular: normal peripheral pulses, normal rate Abdomen: normal bowel sounds Genitourinary: normal external genitalia Laboratory Tests 02/21/17 07:10: White Blood Count 10.0, Red Blood Count 3.80L, Hemoglobin 8.9L, Hematocrit 30.7L , Mean Corpuscular Volume 81, Mean Corpuscular Hemoglobin 23.5L, Mean Corpuscular Hemoglobin Concent 29.1L, Red Cell Distribution Width 19.5H, Platelet Count 249, Mean Platelet Volume 6.4L, Neutrophils (%) (Auto) , Lymphocytes (%) (Auto) , Monocytes (%) (Auto) , Eosinophils (%) (Auto) , Basophils (%) (Auto) , Neutrophils % (Manual) [Pending], Lymphocytes % (Manual) [Pending], Platelet Estimate [Pending], Platelet Morphology [Pending], Erythrocyte Sedimentation Rate 113H, Sodium Level 135L, Potassium Level 3.4L, Chloride Level 99, Carbon Dioxide Level 21, Anion Gap 15, Blood Urea Nitrogen 2L , Creatinine 0.7, Estimat Glomerular Filtration Rate > 60, Glucose Level 288H, Calcium Level 8.9, Phosphorus Level 2.3L, Magnesium Level 1.3L, Total Bilirubin 1.0, Aspartate Amino Transf (AST/SGOT) 29, Alanine Aminotransferase (ALT/SGPT) 21, Alkaline Phosphatase 236H, C-Reactive Protein, Quantitative 5.6H, Total Protein 8.5H, Albumin 2.3L, Globulin 6.2, Albumin/Globulin Ratio 0.4L Current Medications Medications (Trade) Dose Ordered Sig/Mckenzie Route PRN Reason Start Time Stop Time Status Last Admin Dose Admin Acetaminophen (Tylenol) 650 mg Q4H PRN ORAL fever 02/19/17 17:00 03/19/17 16:59 Al Hydroxide/Mg Hydroxide (Mylanta II) 30 ml Q6H PRN ORAL dyspepsia 02/19/17 16:30 03/19/17 22:29 Dextrose (Dextrose 50%) STAT PRN IV Hypoglycemia 02/19/17 16:30 03/19/17 16:29 Dextrose/Sodium Chloride 1,000 ml @ 75 mls/hr [id number] IV 02/19/17 17:30 03/20/17 17:29 02/21/17 08:21 Diphenhydramine HCl (Benadryl) 25 mg Q6H PRN ORAL Itching/Pruritis 02/19/17 16:30 03/19/17 22:29 Nitroglycerin (Ntg) 0.4 mg Q5M X 3 DOSES PRN SL Prn Chest Pain 02/19/17 16:30 03/19/17 16:29 Ondansetron HCl (Zofran) 4 mg Q6H PRN IVP Nausea & Vomiting 02/19/17 16:30 03/19/17 22:29 02/20/17 18:53 Pantoprazole (Protonix) 40 mg DAILY IVP 02/20/17 09:00 03/20/17 11:59 02/21/17 08:17 Polyethylene Glycol (Miralax) 17 gm HSPRN PRN ORAL Constipation 02/19/17 16:30 03/19/17 16:29 Temazepam (Restoril) 15 mg HSPRN PRN ORAL Insomnia 02/19/17 16:30 02/24/17 16:29 NADEEN NELSON Feb 21, 2017 10:49
[2017-02-21 11:07] LABS: ANISOCYTOSIS 2+; BAND NEUTROPHILS % (MANUAL) 0 % (0-8); BASOPHILS % (MANUAL) 0 % (0-2); EOSINOPHILS % (MANUAL) 1 % (0-3); HYPOCHROMASIA 2+; LYMPHOCYTES % (MANUAL) 15 % (20-45); NEUTROPHILS % (MANUAL) 62 % (45-75); NUCLEATED RED BLOOD CELLS 1 /100 WBC; PLATELET ESTIMATE ADEQUATE; PLATELET MORPHOLOGY NORMAL; TOTAL CELLS COUNTED 100
[2017-02-21 12:00] VITALS: BP 121/68
[2017-02-21 16:00] VITALS: BP 105/76
[2017-02-21 20:12] VITALS: BP 109/75
[2017-02-22 00:36] VITALS: BP 108/69
[2017-02-22 04:00] VITALS: BP 108/68
[2017-02-22 08:00] VITALS: BP 100/64
[2017-02-22] MEDS: Pantoprazole Inj IVP SCH (08:10)
[2017-02-22 08:12] LABS: BASOPHILS % (AUTO) 0.8 % (0.0-2.0); EOSINOPHILS % (AUTO) 1.8 % (0.0-3.0); LYMPHOCYTES % (AUTO) 16.7 % (20.0-45.0); MEAN CORPUSCULAR HEMOGLOBIN 23.3 PG (27.0-31.0); MEAN CORPUSCULAR HGB CONC 29.1 G/DL (32.0-36.0); MEAN CORPUSCULAR VOLUME 80 FL (80-99); MEAN PLATELET VOLUME 6.5 FL (6.5-10.1); MONOCYTES % (AUTO) 19.9 % (1.0-10.0); NEUTROPHILS % (AUTO) 60.9 % (45.0-75.0); PLATELET COUNT 227 K/UL (150-450); RED BLOOD COUNT 3.58 M/UL (4.70-6.10); RED CELL DISTRIBUTION WIDTH 19.7 % (11.6-14.8); WHITE BLOOD COUNT 8.9 K/UL (4.8-10.8)
--- NOTE | 2017-02-22 10:31 | GI Progress Note ---
Assessment/Plan Problems: (1) Esophageal thickening ICD Codes: K22.8 - Other specified diseases of esophagus SNOMED: 35851733 (2) GI bleed ICD Codes: K92.2 - Gastrointestinal hemorrhage, unspecified SNOMED: 47021754 Qualifiers: Qualified Codes: K92.2 - Gastrointestinal hemorrhage, unspecified (3) Anemia ICD Codes: D64.9 - Anemia, unspecified SNOMED: 439127705 Qualifiers: Qualified Codes: D64.9 - Anemia, unspecified (4) ETOH abuse ICD Codes: F10.10 - Alcohol abuse, uncomplicated SNOMED: 89082083 Status: unchanged Status Narrative Discussed with Dr. Diaz. Assessment/Plan s/p EGD/colonoscopy SUMMARY OF FINDINGS: August 31, 2016 09:01 1. Questionable portal hypertensive gastropathy. 2. Gastritis. 3. Duodenitis. 4. Rectal prolapse. 5. Rectal varices. CT AP reviewed >> Thickening of the wall of the esophagus vs. mass near the EG vs. small hiatal hernia. In addition there is a mural nodularity noted focally within the upper part of the esophagus. Further evaluation of these findings with EGD is recommended. history of iron deficiency iv iron fu esophagogram >> STRICT NPO, PICC + TPN stool ob repeat labs CEA Subjective Subjective throat irritation Objective Last 24 Hour Vital Signs Date Time Temp Pulse Resp B/P (MAP) Pulse Ox O2 Delivery O2 Flow Rate FiO2 02/22/17 08:00 98.6 97 19 100/64 98 Room Air 02/22/17 04:00 98.2 84 18 108/68 100 Room Air 02/22/17 00:36 98.1 92 19 108/69 95 Room Air 02/21/17 21:30 98.7 02/21/17 20:12 99.5 101 18 109/75 95 Room Air 02/21/17 16:00 99.8 100 20 105/76 95 Room Air 02/21/17 12:00 98.1 93 18 121/68 95 Room Air Intake and Output 02/22/17 02/23/17 19:00 07:00 Intake Total 240 ml Balance 240 ml Intake Oral 240 ml Laboratory Tests Test 02/22/17 06:55 White Blood Count 8.9 K/UL (4.8-10.8) Red Blood Count 3.58 M/UL (4.70-6.10) L Hemoglobin 8.4 G/DL (14.2-18.0) L Hematocrit 28.7 % (42.0-52.0) L Mean Corpuscular Volume 80 FL (80-99) Mean Corpuscular Hemoglobin 23.3 PG (27.0-31.0) L Mean Corpuscular Hemoglobin Concent 29.1 G/DL (32.0-36.0) L Red Cell Distribution Width 19.7 % (11.6-14.8) H Platelet Count 227 K/UL (150-450) Mean Platelet Volume 6.5 FL (6.5-10.1) Neutrophils (%) (Auto) 60.9 % (45.0-75.0) Lymphocytes (%) (Auto) 16.7 % (20.0-45.0) L Monocytes (%) (Auto) 19.9 % (1.0-10.0) H Eosinophils (%) (Auto) 1.8 % (0.0-3.0) Basophils (%) (Auto) 0.8 % (0.0-2.0) Height (Feet): 6 Height (Inches): 0.00 Weight (Pounds): 145 General Appearance: WD/WN, no apparent distress, alert Cardiovascular: normal rate Respiratory/Chest: normal breath sounds, no respiratory distress Abdominal Exam: normal bowel sounds, non tender, soft Extremities: normal range of motion, non-tender Humaira Solorzano NVahe Feb 22, 2017 10:31
[2017-02-22] MEDS ORDERED: Chloraseptic Spray 20mL Bottle ORAL PRN (11:30)
[2017-02-22 12:00] VITALS: BP 102/71
[2017-02-22] MEDS: D5NS 1,000 ML IV SCH (12:10)
--- NOTE | 2017-02-22 12:21 | Pulmonology Progress Note ---
Assessment/Plan Problems: (1) Esophageal mass (2) GI bleed (3) Hemoptysis (4) Anemia (5) Corneal scar, left eye Assessment/Plan h/h stable Ct chest, neck reviewed, abnormal esophagus. GI informed d/w surgeon, we at [facility] are not equipped to handle this type of surgeries. Subjective ROS Limited/Unobtainable: No Constitutional: Reports: no symptoms HEENT: Repors: no symptoms Allergies: Coded Allergies: No Known Allergies (Unverified , 12/28/15) Objective Last 24 Hour Vital Signs Date Time Temp Pulse Resp B/P (MAP) Pulse Ox O2 Delivery O2 Flow Rate FiO2 02/22/17 08:00 98.6 97 19 100/64 98 Room Air 02/22/17 04:00 98.2 84 18 108/68 100 Room Air 02/22/17 00:36 98.1 92 19 108/69 95 Room Air 02/21/17 21:30 98.7 02/21/17 20:12 99.5 101 18 109/75 95 Room Air 02/21/17 16:00 99.8 100 20 105/76 95 Room Air Intake and Output 02/22/17 02/23/17 18:59 06:59 Intake Total 240 ml Balance 240 ml Intake Oral 240 ml General Appearance: cachetic HEENT: normocephalic, atraumatic Respiratory/Chest: chest wall non-tender, lungs clear Cardiovascular: normal peripheral pulses, normal rate Abdomen: normal bowel sounds, soft, non tender Genitourinary: normal external genitalia Skin: no rash 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 Laboratory Tests 02/22/17 06:55: White Blood Count 8.9, Red Blood Count 3.58L, Hemoglobin 8.4L, Hematocrit 28.7L , Mean Corpuscular Volume 80, Mean Corpuscular Hemoglobin 23.3L, Mean Corpuscular Hemoglobin Concent 29.1L, Red Cell Distribution Width 19.7H, Platelet Count 227, Mean Platelet Volume 6.5, Neutrophils (%) (Auto) 60.9, Lymphocytes (%) (Auto) 16.7L, Monocytes (%) (Auto) 19.9H, Eosinophils (%) (Auto ) 1.8, Basophils (%) (Auto) 0.8 Current Medications Medications (Trade) Dose Ordered Sig/Mckenzie Route PRN Reason Start Time Stop Time Status Last Admin Dose Admin Acetaminophen (Tylenol) 650 mg Q4H PRN ORAL fever 02/19/17 17:00 03/19/17 16:59 02/21/17 20:24 Al Hydroxide/Mg Hydroxide (Mylanta II) 30 ml Q6H PRN ORAL dyspepsia 02/19/17 16:30 03/19/17 22:29 Dextrose (Dextrose 50%) STAT PRN IV Hypoglycemia 02/19/17 16:30 03/19/17 16:29 Dextrose/Sodium Chloride 1,000 ml @ 75 mls/hr [id number] IV 02/19/17 17:30 03/20/17 17:29 02/21/17 23:01 Diphenhydramine HCl (Benadryl) 25 mg Q6H PRN ORAL Itching/Pruritis 02/19/17 16:30 03/19/17 22:29 Nitroglycerin (Ntg) 0.4 mg Q5M X 3 DOSES PRN SL Prn Chest Pain 02/19/17 16:30 03/19/17 16:29 Ondansetron HCl (Zofran) 4 mg Q6H PRN IVP Nausea & Vomiting 02/19/17 16:30 03/19/17 22:29 02/20/17 18:53 Pantoprazole (Protonix) 40 mg DAILY IVP 02/20/17 09:00 03/20/17 11:59 02/22/17 08:10 Phenol/Menthol (Chloraseptic) 1 spray Q3H PRN ORAL THROAT IRRITATION 02/22/17 11:30 03/24/17 11:29 Polyethylene Glycol (Miralax) 17 gm HSPRN PRN ORAL Constipation 02/19/17 16:30 03/19/17 16:29 Temazepam (Restoril) 15 mg HSPRN PRN ORAL Insomnia 02/19/17 16:30 02/24/17 16:29 NADEEN NELSON Feb 22, 2017 12:21
--- NOTE | 2017-02-22 12:50 | Consultation ---
History of Present Illness General Date patient seen: Feb 22, 2017 Chief Complaint: Sore Throat Referring physician: NADEEN DOZIER Reason for Consultation: R/O ESOPHAGEAL MASS Present Illness HPI 51 year old male presented with worsening dysphagia. As per patient he has had difficulty swallowing for the past month and feels as if there is "scratching" in oropharynx. Feels as if he was in normal state of health until a month ago when symptoms first began. Since has been slowly worsening. Has noted some blood in sputum intermittently as well. Has noted 15lbs weight loss over the past two months and attributes this to poor diet. States that he is homeless and does not eat much. Does not have regular medical care. States last hospitalization was 1 month ago for eye procedure after trauma. Denies any prior medical history. Denies similar symptoms prior. currently no n/v/f/c. After admission had CT scan which demonstrated distal esophageal mass. Had esophagram today which demonstrated distal mass and extravasation of contrast suggestive of perforation into mediastinum. Surgery called for evaluation. Allergies: Coded Allergies: No Known Allergies (Unverified , 12/28/15) Medication History Scheduled Ferrous Sulfate* (Ferrous Sulfate*), 325 MG ORAL DAILY, (Reported) Folic Acid* (Folic Acid*), 1 MG ORAL DAILY, (Reported) Gabapentin* (Gabapentin*), 300 MG ORAL THREE TIMES A DAY, (Reported) Moxifloxacin HCl (Vigamox), 1 DROP LEFT EYE THREE TIMES A DAY, (Reported) Multivitamins* (Multivitamins*), 1 TAB ORAL DAILY, (Reported) Naproxen* (Naproxen*), 500 MG ORAL TWICE A DAY, (Reported) Logan-3 Acid Ethyl Esters (Lovaza), 2 GM ORAL DAILY, (Reported) Omeprazole (Omeprazole), 20 MG ORAL DAILY, (Reported) Pantoprazole* (Protonix*), 40 MG ORAL DAILY, (Reported) Miscellaneous Medications Prednisolone Acetate (Prednisolone Acetate), 5 ML OP, (Reported) Patient History History Provided By: Patient Healthcare decision maker patient Resuscitation status Advanced Directive on File No Past Medical/Surgical History Past Medical/Surgical History: (1) Anemia (2) GI bleed (3) Corneal scar, left eye (4) Hemoptysis (5) Esophageal thickening (6) Esophageal mass Review of Systems Constitutional: Reports: no symptoms Eye: Reports: no symptoms ENT: Reports: no symptoms Respiratory: Reports: no symptoms Cardiovascular: Reports: no symptoms Gastrointestinal: Reports: hematemesis Genitourinary: Reports: no symptoms Musculoskeletal: Reports: no symptoms Skin: Reports: no symptoms Psychiatric: Reports: no symptoms Neurological: Reports: no symptoms Endocrine: Reports: unexplained weight loss Hematologic/Lymphatic: Reports: no symptoms All Other Systems: negative except mentioned in HPI Physical Exam General Appearance: no apparent distress, cachetic Lines, tubes and drains: peripheral HEENT: normocephalic, mucous membranes moist, other - eye patch on left eye Neck: normal inspection Respiratory/Chest: lungs clear, normal breath sounds, no respiratory distress, no accessory muscle use Cardiovascular/Chest: normal peripheral pulses, normal rate, regular rhythm Abdomen: normal bowel sounds, non tender, soft, no organomegaly, no mass Extremities: normal range of motion, non-tender Skin Exam: normal pigmentation Neurologic: alert, oriented x 3 Last 24 Hour Vital Signs Date Time Temp Pulse Resp B/P (MAP) Pulse Ox O2 Delivery O2 Flow Rate FiO2 02/22/17 08:00 98.6 97 19 100/64 98 Room Air 02/22/17 04:00 98.2 84 18 108/68 100 Room Air 02/22/17 00:36 98.1 92 19 108/69 95 Room Air 02/21/17 21:30 98.7 02/21/17 20:12 99.5 101 18 109/75 95 Room Air 02/21/17 16:00 99.8 100 20 105/76 95 Room Air Intake and Output 02/22/17 02/23/17 19:00 07:00 Intake Total 240 ml Balance 240 ml Intake Oral 240 ml Laboratory Tests Test 02/22/17 06:55 White Blood Count 8.9 K/UL (4.8-10.8) Red Blood Count 3.58 M/UL (4.70-6.10) L Hemoglobin 8.4 G/DL (14.2-18.0) L Hematocrit 28.7 % (42.0-52.0) L Mean Corpuscular Volume 80 FL (80-99) Mean Corpuscular Hemoglobin 23.3 PG (27.0-31.0) L Mean Corpuscular Hemoglobin Concent 29.1 G/DL (32.0-36.0) L Red Cell Distribution Width 19.7 % (11.6-14.8) H Platelet Count 227 K/UL (150-450) Mean Platelet Volume 6.5 FL (6.5-10.1) Neutrophils (%) (Auto) 60.9 % (45.0-75.0) Lymphocytes (%) (Auto) 16.7 % (20.0-45.0) L Monocytes (%) (Auto) 19.9 % (1.0-10.0) H Eosinophils (%) (Auto) 1.8 % (0.0-3.0) Basophils (%) (Auto) 0.8 % (0.0-2.0) Height (Feet): 6 Height (Inches): 0.00 Weight (Pounds): 145 Medications Current Medications Medications (Trade) Dose Ordered Sig/Mckenzie Route PRN Reason Start Time Stop Time Status Last Admin Dose Admin Acetaminophen (Tylenol) 650 mg Q4H PRN ORAL fever 02/19/17 17:00 03/19/17 16:59 02/21/17 20:24 Al Hydroxide/Mg Hydroxide (Mylanta II) 30 ml Q6H PRN ORAL dyspepsia 02/19/17 16:30 03/19/17 22:29 Dextrose (Dextrose 50%) STAT PRN IV Hypoglycemia 02/19/17 16:30 03/19/17 16:29 Dextrose/Sodium Chloride 1,000 ml @ 75 mls/hr [id number] IV 02/19/17 17:30 03/20/17 17:29 02/21/17 23:01 Diphenhydramine HCl (Benadryl) 25 mg Q6H PRN ORAL Itching/Pruritis 02/19/17 16:30 03/19/17 22:29 Nitroglycerin (Ntg) 0.4 mg Q5M X 3 DOSES PRN SL Prn Chest Pain 02/19/17 16:30 03/19/17 16:29 Ondansetron HCl (Zofran) 4 mg Q6H PRN IVP Nausea & Vomiting 02/19/17 16:30 03/19/17 22:29 02/20/17 18:53 Pantoprazole (Protonix) 40 mg DAILY IVP 02/20/17 09:00 03/20/17 11:59 02/22/17 08:10 Phenol/Menthol (Chloraseptic) 1 spray Q3H PRN ORAL THROAT IRRITATION 02/22/17 11:30 03/24/17 11:29 Polyethylene Glycol (Miralax) 17 gm HSPRN PRN ORAL Constipation 02/19/17 16:30 03/19/17 16:29 Potassium Chloride 40 meq/ Sodium Chloride 570 ml @ 142.5 mls/ hr ONCE ONCE IVPB 02/22/17 14:00 02/22/17 17:59 Potassium Phosphate 30 mm/ Sodium Chloride 560 ml @ 93.3 mls/hr ONCE ONCE IV 02/22/17 14:00 02/22/17 20:00 Temazepam (Restoril) 15 mg HSPRN PRN ORAL Insomnia 02/19/17 16:30 02/24/17 16:29 Assessment/Plan Problem List: (1) Esophageal mass Assessment & Plan: 51 year old male with distal esophageal mass which seems to have perforated with extravasation. Currently low grade fevers, no leukocytosis , exam benign. Reviewed CT and esophagram findings. Fortunately currently stable. -strict NPO, IV fluids, TPN, PICC, IV Abx -Given location of mass and perforation HIGHLY Recommend transfer to higher level of care SILVIO. Patient is currently stable but can potentially become septic rapidly with poor prognosis. Unfortunately we do not have the capability for large thoracoabdominal procedure at this institution and patient would benefit from larger higher level of care facility as he will likely require surgery. -thank you for this consultation. will follow with you. ICD Codes: K22.9 - Disease of esophagus, unspecified SNOMED: [id number] Status: stable SoniaHusam Feb 22, 2017 12:50
[2017-02-22] MEDS ORDERED: Heparin 2000 units/Ns 1000ml INJ PRN (13:00)
[2017-02-22] MEDS ORDERED: Lidocaine 1% Plain 30 ml INJ PRN (13:00)
--- NOTE | 2017-02-22 13:54 | Diagnostic Imaging Report ---
Indication: DYSPHAGIA, scraping feeling in throat when swallowing Technique: Patient ingested effervescent granules, oral thick and thin liquid barium Comparison: Reference made to chest CT 02/18/2017 Findings: The esophagus is dilated, with marked redundancy of the mucosal folds. There is a long segment stricture of the distal esophagus extending to the gastroesophageal junction. Measures approximately 5 cm in length. There is leakage into the surrounding soft tissues from a pinpoint perforation in the posterior distal esophagus, centered at the midpoint of the stricture. There is some ulceration of the stricture proximally. Lateral cervical esophagus demonstrates occasional supraglottic trace laryngeal penetration. Esophageal motility is unremarkable. A single AP view of the stomach is unremarkable Impression: Long segment stricture of the distal esophagus. While possibly on the basis of benign stricture, findings are suspicious for esophageal malignancy. Evidence of focal esophageal perforation posteriorly, as described, with extravasation of contrast into the periesophageal soft tissues. Dilatation of the proximal esophagus presumably related to the above. Evidence of supraglottic laryngeal penetration Findings reported by phone to Dr. Bar as well as Dr. Scott previously
[2017-02-22] MEDS ORDERED: Potassium Phosphate 30 MM in Sodium Chloride 500ML 550 ML IV ONE (14:00)
[2017-02-22] MEDS ORDERED: Potassium Chloride 40 MEQ in Sodium Chloride 500ML 550 ML IVPB ONE (14:00)
--- NOTE | 2017-02-22 15:46 | Consultation ---
Consult Note Consult Note [id number] YUNI OSMAN M.D. Feb 22, 2017 15:46
[2017-02-22 16:00] VITALS: BP 100/61
[2017-02-22] MEDS: Ampicillin/Sulbactam Sod 3 GM in NS 110 ML IVPB SCH ×2 (17:20→23:55)
[2017-02-22 20:00] VITALS: BP 108/68
[2017-02-22] MEDS ORDERED: Dyna-Hex 2% Top Sol 2oz TOPIC SCH (20:00)
--- NOTE | 2017-02-22 21:46 | Consultation ---
DATE OF CONSULTATION: INFECTIOUS DISEASE CONSULTATION CONSULTING PHYSICIAN: Moose Mendoza M.D REQUESTING PHYSICIAN: Eleuterio Bar M.D. REASON FOR CONSULTATION: Evaluation of the patient for possible mediastinitis. HISTORY OF PRESENT ILLNESS: The patient is a 51-year-old male who was admitted to this medical center due to worsening of dysphagia. The patient's CT scan showed distal esophageal mass, underwent upper GI series that showed possible perforation of mediastinum with extravasation of contrast. Infectious Disease consultation has been requested for further evaluation of the patient and antibiotic management. PAST MEDICAL HISTORY: Significant for, 1. GERD. 2. Anemia. MEDICATIONS: Off of antibiotics. ALLERGIES: No known drug allergies. SOCIAL HISTORY: History of alcohol abuse. FAMILY HISTORY: Noncontributory. REVIEW OF SYSTEMS: A 10-point review was done and except what is mentioned above has been negative. PHYSICAL EXAMINATION: VITAL SIGNS: Temperature 98 degrees, blood pressure 102/75, pulse 96, and respiratory rate 18. HEENT: No pale conjunctivae. No icterus. NECK: No lymphadenopathy. CHEST: Clear. HEART: S1 and S2. ABDOMEN: Soft. Nontender. EXTREMITIES: No cyanosis at this time. NEUROLOGIC: Awake and alert. LABORATORY AND DIAGNOSTIC DATA: White blood cells 8.9, hemoglobin is 8.4, and platelets 224. BUN 2 and creatinine 0.7. ALT and AST unremarkable. Alkaline phosphatase 236. Esophagram as mentioned above. Also showed a significant stricture of the esophagus and evidence of focal esophageal perforation. ASSESSMENT: The patient is a 51-year-old male with, 1. Possible esophageal mass. 2. Possible esophageal perforation. 3. The patient has a history of mediastinitis/sepsis. PLAN: 1. We will start the patient on IV Unasyn. 2. Monitor CBC and BMP. 3. We will follow surgical recommendations. 4. Based on patient's clinical course and labs, we will do further recommendation. Thank you, Dr. Bar, for allowing me to participate in the care of this patient. I will follow the patient with you during this hospitalization. Moose Mendoza M.D. DR: TEE JOB#: [id number] CC:
[2017-02-22] MEDS ORDERED: Acetaminophen 650 MG SUPP RECTAL PRN (22:45)
[2017-02-23] VITALS: BP 118/64
[2017-02-23] MEDS: D5NS 1,000 ML IV SCH (01:18)
[2017-02-23 04:00] VITALS: BP 100/66
[2017-02-23] MEDS: Ampicillin/Sulbactam Sod 3 GM in NS 110 ML IVPB SCH (05:39)
[2017-02-23 06:45] LABS: MEAN CORPUSCULAR HEMOGLOBIN 24.3 PG (27.0-31.0); MEAN CORPUSCULAR HGB CONC 30.2 G/DL (32.0-36.0); MEAN CORPUSCULAR VOLUME 81 FL (80-99); PLATELET COUNT 195 K/UL (150-450); RED BLOOD COUNT 3.34 M/UL (4.70-6.10); WHITE BLOOD COUNT 9.3 K/UL (4.8-10.8)
[2017-02-23 07:03] LABS: HEMOGLOBIN A1C 10.2 % (4.3-6.0)
[2017-02-23 07:28] LABS: MAGNESIUM 1.2 MG/DL (1.8-2.4); PHOSPHORUS 2.8 MG/DL (2.5-4.9)
[2017-02-23 08:18] LABS: ANISOCYTOSIS 2+; BAND NEUTROPHILS % (MANUAL) 0 % (0-8); BASOPHILS % (MANUAL) 0 % (0-2); EOSINOPHILS % (MANUAL) 0 % (0-3); HYPOCHROMASIA 2+; LYMPHOCYTES % (MANUAL) 22 % (20-45); NEUTROPHILS % (MANUAL) 59 % (45-75); PLATELET ESTIMATE ADEQUATE; PLATELET MORPHOLOGY NORMAL; TOTAL CELLS COUNTED 100
[2017-02-23 08:22] LABS: CARBON DIOXIDE 25 MMOL/L (21-32); CHLORIDE 102 MMOL/L (98-107); CREATININE 0.7 MG/DL (0.55-1.30); POTASSIUM 4.4 MMOL/L (3.5-5.1); SODIUM 137 MMOL/L (136-145)
[2017-02-23 08:23] LABS: CALCIUM 8.6 MG/DL (8.5-10.1)
[2017-02-23 08:27] VITALS: BP 114/68
[2017-02-23] MEDS: Pantoprazole Inj IVP SCH (09:00)
--- NOTE | 2017-02-23 09:19 | Infectious Diseases Prog Note ---
Assessment/Plan Assessment/Plan ASSESSMENT: The patient is a 51-year-old male with, low grade fever high risk for mediastinitis/sepsis. 2/2 Esophageal mass and Esophageal perforation. Elev Alk Ph ro biliary disease GERD Anemia PLAN: cont pt on IV Unasyn d# 2 Monitor CBC and BMP. transfer to outside facility for Surg US of liver Subjective Constitutional: Denies: no symptoms, fever, chills, fatigue, anorexia, drenching sweats, other Allergies: Coded Allergies: No Known Allergies (Unverified , 12/28/15) Objective Vital Signs Last 24 Hour Vital Signs Date Time Temp Pulse Resp B/P (MAP) Pulse Ox O2 Delivery O2 Flow Rate FiO2 02/23/17 08:27 99.4 75 20 114/68 95 Room Air 02/23/17 04:00 99.0 75 17 100/66 99 Room Air 02/23/17 00:30 99.0 02/23/17 00:00 100.4 90 18 118/64 94 Room Air 02/22/17 20:00 99.8 87 19 108/68 96 Room Air 02/22/17 16:00 99.0 71 18 100/61 98 Room Air 02/22/17 12:00 98.4 92 19 102/71 100 Room Air Height (Feet): 6 Height (Inches): 0.00 Weight (Pounds): 145 HEENT: mucous membranes moist Respiratory/Chest: no respiratory distress Cardiovascular: regular rhythm Abdomen: no organomegaly Laboratory Tests Test 02/23/17 06:00 White Blood Count 9.3 K/UL (4.8-10.8) Red Blood Count 3.34 M/UL (4.70-6.10) L Hemoglobin 8.1 G/DL (14.2-18.0) L Hematocrit 27.0 % (42.0-52.0) L Mean Corpuscular Volume 81 FL (80-99) Mean Corpuscular Hemoglobin 24.3 PG (27.0-31.0) L Mean Corpuscular Hemoglobin Concent 30.2 G/DL (32.0-36.0) L Red Cell Distribution Width 20.0 % (11.6-14.8) H Platelet Count 195 K/UL (150-450) Mean Platelet Volume 7.0 FL (6.5-10.1) Neutrophils (%) (Auto) % (45.0-75.0) Lymphocytes (%) (Auto) % (20.0-45.0) Monocytes (%) (Auto) % (1.0-10.0) Eosinophils (%) (Auto) % (0.0-3.0) Basophils (%) (Auto) % (0.0-2.0) Differential Total Cells Counted 100 Neutrophils % (Manual) 59 % (45-75) Lymphocytes % (Manual) 22 % (20-45) Monocytes % (Manual) 19 % (1-10) H Eosinophils % (Manual) 0 % (0-3) Basophils % (Manual) 0 % (0-2) Band Neutrophils 0 % (0-8) Platelet Estimate Adequate Platelet Morphology Normal Hypochromasia 2+ Anisocytosis 2+ Sodium Level 137 MMOL/L (136-145) Potassium Level 4.4 MMOL/L (3.5-5.1) Chloride Level 102 MMOL/L (98-107) Carbon Dioxide Level 25 MMOL/L (21-32) Blood Urea Nitrogen 2 mg/dL (7-18) L Creatinine 0.7 MG/DL (0.55-1.30) Estimat Glomerular Filtration Rate mL/min (>60) Glucose Level 210 MG/DL (74-106) H Hemoglobin A1c 10.2 % (4.3-6.0) H Calcium Level 8.6 MG/DL (8.5-10.1) Phosphorus Level 2.8 MG/DL (2.5-4.9) Magnesium Level 1.2 MG/DL (1.8-2.4) L Triglycerides Level 53 MG/DL (0-200) Current Medications Medications (Trade) Dose Ordered Sig/Mckenzie Route PRN Reason Start Time Stop Time Status Last Admin Dose Admin Acetaminophen (Tylenol) 650 mg Q4H PRN ORAL fever 02/19/17 17:00 03/19/17 16:59 02/21/17 20:24 Acetaminophen (Tylenol) 650 mg Q4H PRN RECTAL Fever >100.4 F 02/22/17 22:45 03/24/17 22:44 02/22/17 23:38 Al Hydroxide/Mg Hydroxide (Mylanta II) 30 ml Q6H PRN ORAL dyspepsia 02/19/17 16:30 03/19/17 22:29 Ampicillin Sodium/ Sulbactam Sodium 3 gm/Sodium Chloride 110 ml @ 220 mls/hr Q6HR IVPB 02/22/17 16:00 03/01/17 15:59 02/23/17 05:39 Chlorhexidine Gluconate (Rebecca-Hex 2%) 1 applic DAILY@2000 TOPIC 02/22/17 20:00 03/24/17 19:59 Dextrose (Dextrose 50%) STAT PRN IV Hypoglycemia 02/19/17 16:30 03/19/17 16:29 Dextrose/Sodium Chloride 1,000 ml @ 75 mls/hr [id number] IV 02/19/17 17:30 03/20/17 17:29 02/23/17 01:18 Diphenhydramine HCl (Benadryl) 25 mg Q6H PRN ORAL Itching/Pruritis 02/19/17 16:30 03/19/17 22:29 Fat Emulsion Intravenous 264 ml/Amino Acids/ Electrolytes/ Dextrose 2,064 ml @ 86 mls/hr Q24H IV 02/23/17 21:00 03/24/17 20:59 Heparin Sodium/ Sodium Chloride (Heparin 2000 units/Ns 1000ml premix) 2,000 unit ONCE PRN INJ PICC PLACEMENT 02/22/17 13:00 02/23/17 23:59 Insulin Aspart (NovoLOG) No Dose Q6HR SUBQ 02/24/17 00:00 03/26/17 00:00 Lidocaine HCl (Xylocaine 1% 30ml) 30 ml ONCE PRN INJ PICC PLACEMENT 02/22/17 13:00 02/23/17 23:59 Nitroglycerin (Ntg) 0.4 mg Q5M X 3 DOSES PRN SL Prn Chest Pain 02/19/17 16:30 03/19/17 16:29 Ondansetron HCl (Zofran) 4 mg Q6H PRN IVP Nausea & Vomiting 02/19/17 16:30 03/19/17 22:29 02/20/17 18:53 Pantoprazole (Protonix) 40 mg DAILY IVP 02/20/17 09:00 03/20/17 11:59 02/22/17 08:10 Polyethylene Glycol (Miralax) 17 gm HSPRN PRN ORAL Constipation 02/19/17 16:30 03/19/17 16:29 Temazepam (Restoril) 15 mg HSPRN PRN ORAL Insomnia 02/19/17 16:30 02/24/17 16:29 YUNI OSMAN M.D. Feb 23, 2017 09:19
--- NOTE | 2017-02-23 14:44 | Pulmonology Progress Note ---
Assessment/Plan Problems: (1) Esophageal mass (2) GI bleed (3) Hemoptysis (4) Anemia (5) Corneal scar, left eye Assessment/Plan h/h stable Ct chest, neck reviewed, abnormal esophagus. d/w thoracic at [facility], they will accept the pt today Subjective ROS Limited/Unobtainable: No Constitutional: Reports: no symptoms HEENT: Repors: no symptoms Respiratory: Reports: no symptoms Allergies: Coded Allergies: No Known Allergies (Unverified , 12/28/15) Objective Last 24 Hour Vital Signs Date Time Temp Pulse Resp B/P (MAP) Pulse Ox O2 Delivery O2 Flow Rate FiO2 02/23/17 08:27 99.4 75 20 114/68 95 Room Air 02/23/17 04:00 99.0 75 17 100/66 99 Room Air 02/23/17 00:30 99.0 02/23/17 00:00 100.4 90 18 118/64 94 Room Air 02/22/17 20:00 99.8 87 19 108/68 96 Room Air 02/22/17 16:00 99.0 71 18 100/61 98 Room Air Intake and Output 02/23/17 02/24/17 19:00 07:00 Output Total 300 ml Balance -300 ml Output Urine Total 300 ml General Appearance: WD/WN HEENT: normocephalic, atraumatic Respiratory/Chest: chest wall non-tender, lungs clear Cardiovascular: normal peripheral pulses, normal rate, regular rhythm Abdomen: normal bowel sounds, soft, non tender Extremities: no cyanosis Skin: no rash 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 Laboratory Tests 02/23/17 06:00: White Blood Count 9.3, Red Blood Count 3.34L, Hemoglobin 8.1L, Hematocrit 27.0L , Mean Corpuscular Volume 81, Mean Corpuscular Hemoglobin 24.3L, Mean Corpuscular Hemoglobin Concent 30.2L, Red Cell Distribution Width 20.0H, Platelet Count 195, Mean Platelet Volume 7.0, Neutrophils (%) (Auto) , Lymphocytes (%) (Auto) , Monocytes (%) (Auto) , Eosinophils (%) (Auto) , Basophils (%) (Auto) , Differential Total Cells Counted 100, Neutrophils % ( Manual) 59, Lymphocytes % (Manual) 22, Monocytes % (Manual) 19H, Eosinophils % ( Manual) 0, Basophils % (Manual) 0, Band Neutrophils 0, Platelet Estimate Adequate, Platelet Morphology Normal, Hypochromasia 2+, Anisocytosis 2+, Sodium Level 137, Potassium Level 4.4, Chloride Level 102, Carbon Dioxide Level 25, Blood Urea Nitrogen 2L, Creatinine 0.7, Estimat Glomerular Filtration Rate , Glucose Level 210H, Hemoglobin A1c 10.2H, Calcium Level 8.6, Phosphorus Level 2.8, Magnesium Level 1.2L, Triglycerides Level 53 NADEEN NELSON Feb 23, 2017 14:44
--- NOTE | 2017-02-23 16:45 | GI Progress Note ---
Assessment/Plan Problems: (1) Esophageal thickening ICD Codes: K22.8 - Other specified diseases of esophagus SNOMED: 73133916 (2) GI bleed ICD Codes: K92.2 - Gastrointestinal hemorrhage, unspecified SNOMED: 79410064 Qualifiers: Qualified Codes: K92.2 - Gastrointestinal hemorrhage, unspecified (3) Anemia ICD Codes: D64.9 - Anemia, unspecified SNOMED: 148015162 Qualifiers: Qualified Codes: D64.9 - Anemia, unspecified (4) ETOH abuse ICD Codes: F10.10 - Alcohol abuse, uncomplicated SNOMED: 94704253 Status: unchanged Status Narrative Discussed with Dr. Diaz. Assessment/Plan s/p EGD/colonoscopy SUMMARY OF FINDINGS: August 31, 2016 09:01 1. Questionable portal hypertensive gastropathy. 2. Gastritis. 3. Duodenitis. 4. Rectal prolapse. 5. Rectal varices. CT AP reviewed >> Thickening of the wall of the esophagus vs. mass near the EG vs. small hiatal hernia. In addition there is a mural nodularity noted focally within the upper part of the esophagus. Further evaluation of these findings with EGD is recommended. history of iron deficiency pt for transfer today iv iron fu esophagogram >> STRICT NPO, PICC + TPN stool ob repeat labs CEA Subjective Subjective throat irritation Objective Last 24 Hour Vital Signs Date Time Temp Pulse Resp B/P (MAP) Pulse Ox O2 Delivery O2 Flow Rate FiO2 02/23/17 08:27 99.4 75 20 114/68 95 Room Air 02/23/17 04:00 99.0 75 17 100/66 99 Room Air 02/23/17 00:30 99.0 02/23/17 00:00 100.4 90 18 118/64 94 Room Air 02/22/17 20:00 99.8 87 19 108/68 96 Room Air Intake and Output 02/23/17 02/24/17 19:00 07:00 Output Total 300 ml Balance -300 ml Output Urine Total 300 ml Laboratory Tests Test 02/23/17 06:00 White Blood Count 9.3 K/UL (4.8-10.8) Red Blood Count 3.34 M/UL (4.70-6.10) L Hemoglobin 8.1 G/DL (14.2-18.0) L Hematocrit 27.0 % (42.0-52.0) L Mean Corpuscular Volume 81 FL (80-99) Mean Corpuscular Hemoglobin 24.3 PG (27.0-31.0) L Mean Corpuscular Hemoglobin Concent 30.2 G/DL (32.0-36.0) L Red Cell Distribution Width 20.0 % (11.6-14.8) H Platelet Count 195 K/UL (150-450) Mean Platelet Volume 7.0 FL (6.5-10.1) Neutrophils (%) (Auto) % (45.0-75.0) Lymphocytes (%) (Auto) % (20.0-45.0) Monocytes (%) (Auto) % (1.0-10.0) Eosinophils (%) (Auto) % (0.0-3.0) Basophils (%) (Auto) % (0.0-2.0) Differential Total Cells Counted 100 Neutrophils % (Manual) 59 % (45-75) Lymphocytes % (Manual) 22 % (20-45) Monocytes % (Manual) 19 % (1-10) H Eosinophils % (Manual) 0 % (0-3) Basophils % (Manual) 0 % (0-2) Band Neutrophils 0 % (0-8) Platelet Estimate Adequate Platelet Morphology Normal Hypochromasia 2+ Anisocytosis 2+ Sodium Level 137 MMOL/L (136-145) Potassium Level 4.4 MMOL/L (3.5-5.1) Chloride Level 102 MMOL/L (98-107) Carbon Dioxide Level 25 MMOL/L (21-32) Blood Urea Nitrogen 2 mg/dL (7-18) L Creatinine 0.7 MG/DL (0.55-1.30) Estimat Glomerular Filtration Rate mL/min (>60) Glucose Level 210 MG/DL (74-106) H Hemoglobin A1c 10.2 % (4.3-6.0) H Calcium Level 8.6 MG/DL (8.5-10.1) Phosphorus Level 2.8 MG/DL (2.5-4.9) Magnesium Level 1.2 MG/DL (1.8-2.4) L Triglycerides Level 53 MG/DL (0-200) Height (Feet): 6 Height (Inches): 0.00 Weight (Pounds): 145 General Appearance: WD/WN, no apparent distress, alert Cardiovascular: normal rate Respiratory/Chest: normal breath sounds, no respiratory distress Abdominal Exam: normal bowel sounds, non tender, soft Extremities: normal range of motion, non-tender Humaira Solorzano N.P. Feb 23, 2017 16:45
[2017-02-23] MEDS ORDERED: FAT EMULSION 20% IV SCH (21:00)
[2017-02-23] MEDS ORDERED: TPN IV SCH (21:00)
[2017-02-24] MEDS ORDERED: NovoLOG Insulin Flexpen SUBQ SCH
--- NOTE | 2017-02-25 15:19 | Discharge Summary ---
Discharge Summary Hospital Course Date of Admission Feb 17, 2017 at 19:08 Date of Discharge Feb 23, 2017 at 10:30 Admitting Diagnosis GI BLEED,ANEMIA HPI Solitario Castillo is a 51 year old male who was admitted on Feb 17, 2017 at 19:08 for Gastrointestinal Bleed, Anemia Hospital Course [id number] Discharge Discharge Disposition Patient was discharged to [facility] Discharge Diagnoses: Zoe Shaver NP Feb 25, 2017 15:19
--- NOTE | 2017-02-25 22:00 | Discharge Summary 2 SIG ---
DATE OF ADMISSION: 02/17/2017 DATE OF DISCHARGE: 02/23/2017 CONSULTANTS: 1. Ignacio Diaz M.D. 2. Husam Scott M.D. 3. Moose Mendoza M.D. BRIEF HOSPITAL COURSE: The patient is a 51-year-old male, who presented to ED from home complaining of sore throat for two days and spitting up bright red blood for one day. He reports drinking three bottles of beer daily and also reported black stools three days prior to admission. He had recent eye surgery about a month ago and has a patch over his left eye. On evaluation at ED, CBC showed hemoglobin of 8.1 and hematocrit was 14. EKG was in normal sinus rhythm. He was given IV hydration and was placed on Protonix and octreotide drip. He was then admitted to intensive care unit for GI bleed. He was placed on NPO. CT of the neck and chest showed thickening of the wall of the esophagus versus esophageal mass. He had an esophagogastroduodenoscopy and colonoscopy performed back in August 2016 that showed a portal hypertensive gastropathy with gastritis and duodenitis. Colonoscopy showed rectal prolapse and rectal varices. Anemia work-up showed iron level was low, he was given iron IV. He underwent venous duplex of lower extremity that showed a recannulized thrombus on the right leg. Esophagram done showed long segment stricture on the distal esophagus suspicious for esophageal malignancy. There was evidence of focal esophageal perforation posteriorly with extravasation of contrast into the periesophageal soft tissue. Surgical evaluation was done. The patient was placed on strict NPO and was recommended TPN. Given location of mass and perforation and complexity of care needed, the patient was transferred to higher level of care. He was started on IV Unasyn as the patient has potential for mediastinitis and sepsis. He was eventually transferred to [facility]. FINAL DIAGNOSES: 1. Esophageal mass highly suspicious for carcinoma. 2. Gastrointestinal bleed. 3. Hemoptysis. 4. Anemia. 5. Left eye corneal scar. 6. Iron deficiency anemia. 7. Ethyl alcohol abuse. 8. High risk for mediastinitis/sepsis. 9. Gastroesophageal reflux disease. DISPOSITION: The patient was transferred to a higher level of care at [facility]. Eleuterio Bar M.D. I have been assigned to dictate discharge summary on this account and I was not involved in the patient's management. Zoe Shaver N.P. DR: SEJAL JOB#: [id number] CC: CAIO
--- NOTE | 2017-02-28 16:23 | Cardiology Report ---
APPROVED REPORT EKG Measurement Heart [id number] OR 166P38 [id number] Normal sinus rhythm Normal ECG
== END 2017-02-23 10:30 | disposition short-term general hospital (02) | DRG 240 ==
LOC: EDBD 16:30 → EMR 18:12 → 2E 19:08 → EDBEDREQ 21:15 → EDBEDREQSVC 23:38 → EDBEDREQ 23:38 → ICU 02-18 06:22 → 2E 02-19 06:07 → 3E 02-19 15:05
DX: C15.9 Malignant neoplasm of esophagus, unspecified (principal); K22.3 Perforation of esophagus; K92.2 Gastrointestinal hemorrhage, unspecified; F10.10 Alcohol abuse, uncomplicated; D50.9 Iron deficiency anemia, unspecified; H17.9 Unspecified corneal scar and opacity; K21.9 Gastro-esophageal reflux disease without esophagitis; Z59.0 Homelessness
CPT/HCPCS: 36415; 70491; 71010; 71260; 74220; 80048; 80053; 82150; 82248; 82607; 82728; 82746; 83036; 83540; 83550; 83615; 83690; 83735; 84100; 84478; 85007; 85025; 85044; 85060; 85610; 85651; 85730; 86140; 86850; 86900; 86901; 86920; 87081; 93005; 93970; 99285; J1815; J2405; J8499